=== PATIENT | female | born 1950 | race African-American/Black ===

== ENCOUNTER 2019-10-01 19:15 | Inpatient (IN) ==
[2019-10-01] MEDS ORDERED: ALUM/MAG/SIMETH/LIDO VISC 1:1 30 ML BOTTLE PO STA (19:37)
[2019-10-01] MEDS ORDERED: ASPIRIN 325 MG TABLET PO STA (19:37)
[2019-10-01] MEDS ORDERED: NITROGLYCERIN 2% OINT 1 INCH/GM PACK TOP STA (19:37)
[2019-10-01] MEDS ORDERED: ONDANSETRON 4 MG/2 ML VIAL IV STA (19:37)
[2019-10-01] MEDS ORDERED: PANTOPRAZOLE 40 MG VIAL IV STA (19:37)
[2019-10-01 20:01] LABS: Basophils % 0.2 % (0.0-0.8); Eosinophils # 0.1 10*3/uL (0.0-0.87); Eosinophils % 2.3 % (0.00-10.9); Hematocrit 38.3 VOL% (35.7-47.0); Hemoglobin 11.7 GM/DL (12.0-16.0); Immature Granulocytes % 0.2 %; Immature Granulocytes Absolute 0.01 #; Lymphocytes # 2.8 10*3/uL (1.4-4.0); Lymphocytes % 45.5 % (21.3-54.2); Mean Corpuscular HGB Conc 30.5 GM/DL (32-36); Mean Corpuscular Volume 75.8 FL (87-102); Mean Platelet Volume 10.7 FL (9.6-12.0); Monocytes % 6.3 % (1.7-12.7); Neutrophils % 45.5 % (38.7-73.9); Platelet Count 187 T/CUMM (130-400); Red Blood Count 5.05 MC/CUMM (3.8-5.5); Red Cell Distribution Width 13.6 % (9.3-17.3); White Blood Count 6.2 T/CUMM (4-12)
[2019-10-01 20:12] LABS: Apearance,Urine CLEAR (Clear); Bacteria,Urine Occasional /HPF (Few); Bilirubin,Urine Negative (Negative); Blood, Urine Small mg/dL (Negative); Glucose,Urine (UA) Negative (Negative); Ketones,Urine Negative (Negative); Nitrite,Urine Negative (Negative); Protein,Urine Negative; RBC,Urine 2 /HPF (0-4); Squamous Epithelial Cell,Urine Occasional /HPF (0-10); Urine Color Straw (Yellow); Urine Specific Gravity 1.005 (1.001-1.035); Urine Urobilinogen < 2.0 EU/DL (0.2-1.0); WBC,Urine 1 /HPF (0-6)
[2019-10-01 20:13] LABS: PT Patient Result 11.3 SECS (9.6-12.2)
[2019-10-01 20:25] LABS: Albumin 3.8 G/DL (3.4-5.0); Bilirubin,Total 0.6 MG/DL (0.2-1.0); Calcium 9.1 MG/DL (8.5-10.1); Osmolality,Calculated 283.4 MOS/KG (273-304); Total Protein 7.8 G/DL (6.4-8.3)
[2019-10-01] MEDS ORDERED: ENOXAPARIN 100 MG/ML SYRINGE SUBCUT STA (20:32)
[2019-10-01] MEDS ORDERED: SODIUM CHLORIDE 0.9% 1,000 ML IV SCH (23:44)
[2019-10-01] MEDS ORDERED: MORPHINE 4 MG/1 ML VIAL IV PRN (23:44)
[2019-10-01] MEDS ORDERED: DEXTROSE 10% 250 ML BAG IV PRN (23:44)
[2019-10-01] MEDS ORDERED: GLUCAGON 1 MG VIAL IM PRN (23:44)
[2019-10-01] MEDS ORDERED: ACETAMINOPHEN 325 MG TABLET PO PRN (23:44)
[2019-10-01] MEDS ORDERED: ONDANSETRON 4 MG/2 ML VIAL IV PRN (23:44)
[2019-10-02] MEDS: NITROGLYCERIN 2% OINT 1 INCH/GM PACK TOP SCH ×5 (01:07→23:40)
[2019-10-02] MEDS: INSULIN REGULAR 100 UNIT/ML SUBCUT SCH ×5 (01:43→21:29)
[2019-10-02 02:26] LABS: Basophils % 0.2 % (0.0-0.8); Eosinophils # 0.1 10*3/uL (0.0-0.87); Eosinophils % 1.1 % (0.00-10.9); Hematocrit 34.9 VOL% (35.7-47.0); Hemoglobin 10.9 GM/DL (12.0-16.0); Immature Granulocytes % 0.2 %; Immature Granulocytes Absolute 0.01 #; Lymphocytes # 2.1 10*3/uL (1.4-4.0); Lymphocytes % 39.9 % (21.3-54.2); Mean Corpuscular HGB Conc 31.2 GM/DL (32-36); Mean Corpuscular Volume 74.3 FL (87-102); Mean Platelet Volume 10.3 FL (9.6-12.0); Monocytes % 4.9 % (1.7-12.7); Neutrophils % 53.7 % (38.7-73.9); Platelet Count 158 T/CUMM (130-400); Red Cell Distribution Width 13.4 % (9.3-17.3); White Blood Count 5.3 T/CUMM (4-12)
[2019-10-02 06:57] LABS: Albumin 3.4 G/DL (3.4-5.0); Bilirubin,Total 0.7 MG/DL (0.2-1.0); Calcium 8.4 MG/DL (8.5-10.1); Osmolality,Calculated 287.3 MOS/KG (273-304); Risk Ratio 3.53; Total Protein 6.8 G/DL (6.4-8.3); VLDL CHOLESTEROL 19.4 MG/DL
[2019-10-02] MEDS ORDERED: DIAZEPAM 5 MG TABLET PO ONE (07:27)
[2019-10-02] MEDS ORDERED: ASPIRIN 325 MG TABLET PO ONE (07:27)
[2019-10-02] MEDS ORDERED: POTASSIUM CHLORIDE RIDER 10 MEQ in PREMIX 1 EACH IV PRN (07:27)
[2019-10-02] MEDS ORDERED: MAGNESIUM SULF RIDER 2 GM in PREMIX 1 EACH IV PRN (07:27)
[2019-10-02] MEDS ORDERED: diphenhydrAMINE CAP 25 MG CAPSULE PO ONE (07:27)
[2019-10-02] MEDS: DOCUSATE SODIUM 100 MG CAPSULE PO SCH ×2 (08:38→21:28)
[2019-10-02] MEDS: PANTOPRAZOLE 40 MG VIAL IV SCH (08:42)
[2019-10-02] MEDS ORDERED: ASPIRIN EC 325 MG TABLET PO SCH (09:00)
[2019-10-02] MEDS ORDERED: ENOXAPARIN 80 MG/0.8 ML SYRINGE SUBCUT SCH (09:00)
[2019-10-02] MEDS ORDERED: HEPARIN/NACL 0.9% 2 UNITS/ML 1,000 ML IV ONE (12:20)
[2019-10-02] MEDS ORDERED: LIDOCAINE 1% 20 ML VIAL ONE ×2 (12:20→13:17)
[2019-10-02] MEDS ORDERED: HYDROmorphone 2 MG/1 ML VIAL ONE (12:52)
[2019-10-02] MEDS ORDERED: MIDAZOLAM 2 MG/2 ML VIAL ONE (12:52)
[2019-10-02] MEDS ORDERED: diphenhydrAMINE 50 MG/1 ML VIAL ONE (13:23)
[2019-10-02] MEDS ORDERED: GLUCAGON 1 MG VIAL IM PRN (14:14)
[2019-10-02] MEDS ORDERED: DEXTROSE 50% 25 GM/50 ML VIAL IV PRN (14:14)
[2019-10-02] MEDS ORDERED: ZALEPLON 5 MG CAPSULE PO PRN (14:14)
[2019-10-02] MEDS: SODIUM CHLORIDE 0.9% 1,000 ML IV SCH ×2 (15:06→23:39)
[2019-10-02] MEDS: METOPROLOL TARTRATE 50 MG TABLET PO SCH (15:10)
[2019-10-02] MEDS: SIMVASTATIN 10 MG TABLET PO SCH (21:28)
[2019-10-03 06:35] LABS: Basophils % 0.2 % (0.0-0.8); Eosinophils # 0.1 10*3/uL (0.0-0.87); Eosinophils % 2.7 % (0.00-10.9); Hematocrit 30.3 VOL% (35.7-47.0); Immature Granulocytes % 0.2 %; Immature Granulocytes Absolute 0.01 #; Lymphocytes % 38.6 % (21.3-54.2); Mean Corpuscular HGB Conc 29.7 GM/DL (32-36); Mean Corpuscular Volume 77.5 FL (87-102); Mean Platelet Volume 11.4 FL (9.6-12.0); Monocytes % 6.3 % (1.7-12.7); Platelet Count 136 T/CUMM (130-400); Red Blood Count 3.91 MC/CUMM (3.8-5.5); Red Cell Distribution Width 13.8 % (9.3-17.3); White Blood Count 5.1 T/CUMM (4-12)
[2019-10-03] MEDS: NITROGLYCERIN 2% OINT 1 INCH/GM PACK TOP SCH ×3 (07:06→18:00)
[2019-10-03 07:14] LABS: Calcium 7.7 MG/DL (8.5-10.1); Osmolality,Calculated 291.8 MOS/KG (273-304)
[2019-10-03] MEDS: PANTOPRAZOLE 40 MG VIAL IV SCH (08:27)
[2019-10-03] MEDS: INSULIN REGULAR 100 UNIT/ML SUBCUT SCH ×4 (08:29→20:46)
[2019-10-03] MEDS: ASPIRIN EC 81 MG TABLET PO SCH (08:30)
[2019-10-03] MEDS: CHOLECALCIFEROL 1,000 UNIT TABLET PO SCH (08:30)
[2019-10-03] MEDS: LOSARTAN/HCTZ 50-12.5 MG TABLET PO SCH (08:30)
[2019-10-03] MEDS: DOCUSATE SODIUM 100 MG CAPSULE PO SCH ×2 (08:30→20:43)
[2019-10-03] MEDS: METOPROLOL TARTRATE 50 MG TABLET PO SCH ×2 (08:30→20:43)
[2019-10-03] MEDS: SODIUM CHLORIDE 0.9% 1,000 ML IV SCH (08:31)
[2019-10-03] MEDS: SIMVASTATIN 10 MG TABLET PO SCH (20:43)
[2019-10-04] MEDS: NITROGLYCERIN 2% OINT 1 INCH/GM PACK TOP SCH ×4 (00:38→17:30)
[2019-10-04] MEDS: INSULIN REGULAR 100 UNIT/ML SUBCUT SCH ×4 (08:04→21:31)
[2019-10-04] MEDS: DOCUSATE SODIUM 100 MG CAPSULE PO SCH ×2 (09:13→21:31)
[2019-10-04] MEDS: ASPIRIN EC 81 MG TABLET PO SCH (09:13)
[2019-10-04] MEDS: METOPROLOL TARTRATE 50 MG TABLET PO SCH ×2 (09:14→21:31)
[2019-10-04] MEDS: PANTOPRAZOLE 40 MG VIAL IV SCH (09:14)
[2019-10-04] MEDS: CHOLECALCIFEROL 1,000 UNIT TABLET PO SCH (09:14)
[2019-10-04] MEDS: LOSARTAN/HCTZ 50-12.5 MG TABLET PO SCH (09:14)
[2019-10-04] MEDS ORDERED: LACTULOSE 20 GM/30 ML UDCUP PO PRN (18:07)
[2019-10-04] MEDS: SIMVASTATIN 10 MG TABLET PO SCH (21:31)
[2019-10-05] MEDS: NITROGLYCERIN 2% OINT 1 INCH/GM PACK TOP SCH ×4 (00:28→17:10)
[2019-10-05 06:07] LABS: Folate 16.1 NG/ML (5.4-24.0)
[2019-10-05 06:08] LABS: % Iron Saturation 19.1 % (18-50)
[2019-10-05] MEDS: INSULIN REGULAR 100 UNIT/ML SUBCUT SCH ×4 (08:32→22:11)
[2019-10-05] MEDS ORDERED: CEFUROXIME INJ 1,500 MG in SYRINGE 1 EACH IV ONE (08:52)
[2019-10-05] MEDS ORDERED: GLUCAGON 1 MG VIAL IM PRN (08:52)
[2019-10-05] MEDS ORDERED: DEXTROSE 10% 25 GM/250 ML BAG IV PRN (08:52)
[2019-10-05] MEDS ORDERED: CHLORHEXIDINE 0.12% ORAL RINSE 60 ML BOTTLE SWISH/SPIT SCH (09:00)
[2019-10-05] MEDS ORDERED: SODIUM CHLORIDE 0.9% 1,000 ML IV SCH (09:00)
[2019-10-05] MEDS: POLYETHYLENE GLYCOL POWDER 17 GM PACK PO SCH (09:38)
[2019-10-05] MEDS: PANTOPRAZOLE 40 MG VIAL IV SCH (09:38)
[2019-10-05] MEDS: ASPIRIN EC 81 MG TABLET PO SCH (09:39)
[2019-10-05] MEDS: LOSARTAN/HCTZ 50-12.5 MG TABLET PO SCH (09:39)
[2019-10-05] MEDS: CHOLECALCIFEROL 1,000 UNIT TABLET PO SCH (09:39)
[2019-10-05] MEDS: METOPROLOL TARTRATE 50 MG TABLET PO SCH ×2 (09:39→21:53)
[2019-10-05] MEDS: DOCUSATE SODIUM 100 MG CAPSULE PO SCH ×2 (09:39→21:53)
[2019-10-05 09:47] LABS: ABG Base Excess 0.6 MMOL/L (-2.5-2.5); ABG Oxygen Saturation 97.6 % (95-100); ABG PCO2 37.1 MM HG (35-48); ABG PH 7.431 (7.35-7.45); ABG PO2 85.8 MM HG (80-95); ABG TCO2 22.6 MMOL/L (23-27)
[2019-10-05] MEDS: CHLORHEXIDINE 4% SOLN 118 ML BOTTLE TOP SCH ×4 (12:53→22:11)
[2019-10-05] MEDS: SIMVASTATIN 10 MG TABLET PO SCH (21:53)
[2019-10-05] MEDS: CHLORHEXIDINE 0.12% ORAL RINSE 60 ML BOTTLE SWISH/SPIT SCH (21:55)
[2019-10-06] MEDS: NITROGLYCERIN 2% OINT 1 INCH/GM PACK TOP SCH ×2 (01:11→06:15)
[2019-10-06] MEDS ORDERED: VANCOMYCIN 1,000 MG VIAL ONE (04:23)
[2019-10-06] MEDS ORDERED: PAPAVERINE 60 MG/2 ML VIAL ONE (04:23)
[2019-10-06] MEDS ORDERED: VANCOMYCIN 500 MG VIAL ONE (04:23)
[2019-10-06] MEDS: LOSARTAN/HCTZ 50-12.5 MG TABLET PO SCH ×2 (05:33→09:18)
[2019-10-06] MEDS: METOPROLOL TARTRATE 50 MG TABLET PO SCH ×2 (05:33→09:18)
[2019-10-06] MEDS ORDERED: SODIUM CHLORIDE 0.9% 1,000 ML IV SCH (06:00)
[2019-10-06] MEDS ORDERED: CEFUROXIME INJ 1,500 MG in SYRINGE 1 EACH IV ONE (06:00)
[2019-10-06] MEDS: CHLORHEXIDINE 4% SOLN 118 ML BOTTLE TOP SCH ×2 (06:15→09:18)
[2019-10-06] MEDS ORDERED: MIDAZOLAM 10 MG/2 ML VIAL ONE ×2 (06:20)
[2019-10-06] MEDS ORDERED: SUFentanil 250 MCG/5 ML AMP ONE (06:20)
[2019-10-06] MEDS ORDERED: MINERAL OIL/PETROLATUM OPH OINT 3.5 GM TUBE ONE (06:20)
[2019-10-06] MEDS ORDERED: FAMOTIDINE 20 MG/2 ML VIAL IV ONE (06:21)
[2019-10-06] MEDS ORDERED: diphenhydrAMINE 50 MG/1 ML VIAL ONE (06:21)
[2019-10-06] MEDS ORDERED: NITROPRUSSIDE 50 MG/2 ML VIAL ONE (07:17)
[2019-10-06] MEDS ORDERED: ALBUMIN 5% 12.5 GM/250 ML VIAL IV ONE ×3 (07:18→10:43)
[2019-10-06] MEDS ORDERED: SODIUM BICARBONATE 50 MEQ/50 ML VIAL IV ONE ×2 (07:18→10:42)
[2019-10-06] MEDS ORDERED: PHENYLEPHRINE DRIP 40 MG/250 ML PREMIX IV ONE (07:18)
[2019-10-06] MEDS ORDERED: POTASSIUM CHLORIDE RIDER 100 ML IV ONE (07:18)
[2019-10-06] MEDS ORDERED: CALCIUM CHLORIDE 1,000 MG/10 ML SYRINGE IV ONE (07:18)
[2019-10-06] MEDS ORDERED: EPINEPHrine 1 MG/10 ML SYRINGE ONE (07:19)
[2019-10-06 07:40] LABS: ABG Base Excess -1.8 MMOL/L (-2.5-2.5); ABG HCO3 22.9 MMOL/L (20-26); ABG PH 7.388 (7.35-7.45); ABG TCO2 21.2 MMOL/L (23-27); Glucose Heart Surgery 206 MG/DL (74-106); Hematocrit Heart Surgery 26.9 PERCENT (37-47); Hemoglobin Heart Surgery 8.7 G/DL (12.0-16.0); Ionized Calcium Arterial 1.14 MMOL/L (1.21-1.46); PH Patient Temp Arterial 7.388; Patient Temperature 37 CELCIUS; Potassium Heart/CVR 3.3 MMOL/L (3.5-5.1); Sodium Heart/CVR 141 MMOL/L (135-145)
[2019-10-06 07:47] LABS: Apearance,Urine CLEAR (Clear); Bilirubin,Urine Negative (Negative); Blood, Urine Negative (Negative); Glucose,Urine (UA) Negative (Negative); Ketones,Urine Negative (Negative); Mucus,Urine Few /LPF (Occasional); Nitrite,Urine Negative (Negative); Protein,Urine Negative; RBC,Urine <1 /HPF (0-4); Squamous Epithelial Cell,Urine Occasional /HPF (0-10); Urine Color Yellow (Yellow); Urine Specific Gravity 1.015 (1.001-1.035)
[2019-10-06 09:12] LABS: Hematocrit Heart Surgery 23.4 PERCENT (37-47); Hemoglobin Heart Surgery 7.5 G/DL (12.0-16.0); PH Patient Temp Venous 7.45; PO2 Patient Temp Venous 42.9 MM HG; VBG Base Excess -2.5 MEQ/L (0-4); VBG HCO3 22.3 MEQ/L (24-28); VBG Oxygen Saturation 91.4 %; VBG PCO2 34.7 MMHG (41-51); VBG PH 7.406; VBG PO2 52.6 MMHG (17-40)
[2019-10-06] MEDS: POLYETHYLENE GLYCOL POWDER 17 GM PACK PO SCH (09:18)
[2019-10-06] MEDS: ASPIRIN EC 81 MG TABLET PO SCH (09:18)
[2019-10-06] MEDS: CHLORHEXIDINE 0.12% ORAL RINSE 60 ML BOTTLE SWISH/SPIT SCH ×2 (09:18→20:17)
[2019-10-06] MEDS: DOCUSATE SODIUM 100 MG CAPSULE PO SCH (09:18)
[2019-10-06] MEDS: PANTOPRAZOLE 40 MG VIAL IV SCH (09:18)
[2019-10-06] MEDS: CHOLECALCIFEROL 1,000 UNIT TABLET PO SCH (09:18)
[2019-10-06] MEDS: INSULIN REGULAR 100 UNIT/ML SUBCUT SCH ×2 (09:18→13:01)
[2019-10-06 09:46] LABS: Hematocrit Heart Surgery 23.3 PERCENT (37-47); Hemoglobin Heart Surgery 7.5 G/DL (12.0-16.0); PCO2 Patient Temp Venous 29.3 MM HG; PH Patient Temp Venous 7.498; PO2 Patient Temp Venous 41.8 MM HG; Potassium Heart/CVR 4.7 MMOL/L (3.5-5.1); VBG Base Excess 0.1 MEQ/L (0-4); VBG HCO3 24.5 MEQ/L (24-28); VBG Oxygen Saturation 92.8 %; VBG PCO2 35.6 MMHG (41-51); VBG PH 7.439; VBG PO2 54.7 MMHG (17-40)
[2019-10-06] MEDS ORDERED: LIDOCAINE 2% 5 ML VIAL ONE ×2 (10:42→11:28)
[2019-10-06] MEDS ORDERED: ALBUMIN 25% 25 GM/100 ML VIAL IV ONE (10:42)
[2019-10-06] MEDS ORDERED: DEXTROSE 5% KCL 20 MEQ 20 MEQ/1,000 ML BAG IV ONE (10:42)
[2019-10-06] MEDS ORDERED: MANNITOL 100 GM/500 ML BAG IV ONE (10:42)
[2019-10-06] MEDS ORDERED: MAGNESIUM SULFATE 5 GM/10 ML VIAL IV ONE (10:42)
[2019-10-06] MEDS ORDERED: PROTAMINE SULFATE 250 MG/25 ML VIAL IV ONE (10:42)
[2019-10-06] MEDS ORDERED: FUROSEMIDE 20 MG/2 ML VIAL ONE (10:43)
[2019-10-06] MEDS ORDERED: HEPARIN 10,000 UNIT/10 ML VIAL ONE (10:43)
[2019-10-06] MEDS ORDERED: methylPREDNISolone SOD SUC 1,000 MG/8 ML VIAL ONE (10:43)
[2019-10-06 10:44] LABS: ABG Base Excess -2.1 MMOL/L (-2.5-2.5); ABG HCO3 22.7 MMOL/L (20-26); ABG PCO2 38.2 MM HG (35-48); ABG PH 7.382 (7.35-7.45); Glucose Heart Surgery 316 MG/DL (74-106); Hematocrit Heart Surgery 27.7 PERCENT (37-47); Hemoglobin Heart Surgery 8.9 G/DL (12.0-16.0); Ionized Calcium Arterial 1.16 MMOL/L (1.21-1.46); PCO2 Patient Temp Arterial 38.2 MMHG; PH Patient Temp Arterial 7.382; Patient Temperature 37 CELCIUS; Potassium Heart/CVR 4.2 MMOL/L (3.5-5.1); Sodium Heart/CVR 135 MMOL/L (135-145)
[2019-10-06] MEDS: LACTATED RINGERS 1,000 ML IV PRN ×3 (11:20→15:56)
[2019-10-06] MEDS ORDERED: PHENYLEPHRINE DRIP 20 MG/250 ML PREMIX IV ONE (11:28)
[2019-10-06] MEDS ORDERED: CALCIUM CHLORIDE 1,000 MG/10 ML VIAL IV ONE (11:28)
[2019-10-06] MEDS ORDERED: SODIUM CHLORIDE 0.9% 200 ML IV ONE (11:29)
[2019-10-06] MEDS ORDERED: LACTATED RINGERS 1,000 ML IV ONE (11:29)
[2019-10-06] MEDS ORDERED: ETOMIDATE 40 MG/20 ML VIAL IV ONE (11:29)
[2019-10-06] MEDS ORDERED: HEPARIN/NACL 0.9% 2 UNITS/ML 500 ML IV ONE (11:29)
[2019-10-06] MEDS ORDERED: AMINOCAPROIC ACID 5,000 MG/20 ML VIAL ONE (11:29)
[2019-10-06] MEDS ORDERED: SODIUM CHLORIDE 0.9% 2,000 ML IV ONE (11:29)
[2019-10-06] MEDS ORDERED: VECURONIUM 10 MG VIAL IV ONE (11:29)
[2019-10-06] MEDS ORDERED: SEVOFLURANE 1 UNIT/15 MINUTE INH ONE (11:29)
[2019-10-06] MEDS ORDERED: SODIUM CHLORIDE 0.9% 250 ML IV ONE (11:29)
[2019-10-06] MEDS ORDERED: NITROGLYCERIN DRIP 50 MG/250 ML BOTTLE IV ONE (11:29)
[2019-10-06] MEDS: ALBUMIN 5% 12.5 GM in PREMIX 1 EACH IV PRN ×2 (11:30→12:53)
[2019-10-06] MEDS ORDERED: ONDANSETRON 4 MG/2 ML VIAL IV PRN (11:47)
[2019-10-06] MEDS ORDERED: PHENYLEPHRINE DRIP 40 MG/250 ML PREMIX IV PRN (11:47)
[2019-10-06] MEDS ORDERED: NITROPRUSSIDE 100 MG in DEXTROSE 5% 250 ML IV PRN (11:47)
[2019-10-06] MEDS ORDERED: MAGNESIUM SULF RIDER 2 GM in PREMIX 1 EACH IV PRN (11:47)
[2019-10-06] MEDS ORDERED: MORPHINE 4 MG/1 ML VIAL IV PRN (11:47)
[2019-10-06] MEDS ORDERED: MAGNESIUM SULF RIDER 4 GM in PREMIX 1 EACH IV PRN (11:47)
[2019-10-06] MEDS ORDERED: POTASSIUM CHLORIDE RIDER 10 MEQ in PREMIX 1 EACH IV PRN (11:47)
[2019-10-06] MEDS ORDERED: CALCIUM CHLORIDE 1,000 MG/10 ML SYRINGE IV PRN (11:47)
[2019-10-06] MEDS ORDERED: DEXTROSE 50% 25 GM/50 ML VIAL IV PRN (11:47)
[2019-10-06] MEDS ORDERED: MORPHINE 10 MG/1 ML VIAL IV PRN (11:47)
[2019-10-06] MEDS ORDERED: VECURONIUM 10 MG VIAL IV PRN ×2 (11:47)
[2019-10-06] MEDS ORDERED: MIDAZOLAM 10 MG/2 ML VIAL IV PRN (11:47)
[2019-10-06] MEDS ORDERED: DEXTROSE 10% 25 GM/250 ML BAG IV PRN ×2 (11:47→12:30)
[2019-10-06] MEDS ORDERED: INSULIN REGULAR 100 UNIT/ML IV ONE (11:47)
[2019-10-06] MEDS ORDERED: ACETAMINOPHEN 650 MG SUPP RECTAL PRN (11:47)
[2019-10-06] MEDS ORDERED: MIDAZOLAM 2 MG/2 ML VIAL IV PRN (11:47)
[2019-10-06] MEDS ORDERED: LACTATED RINGERS 250 ML IV PRN (11:47)
[2019-10-06 11:52] LABS: ABG Base Excess -1.4 MMOL/L (-2.5-2.5); ABG HCO3 23.2 MMOL/L (20-26); ABG Oxygen Saturation 97.6 % (95-100); ABG PCO2 28.7 MM HG (35-48); ABG PH 7.476 (7.35-7.45); ABG PO2 81.1 MM HG (80-95); Glucose Heart Surgery 314 MG/DL (74-106); Hematocrit Heart Surgery 32.9 PERCENT (37-47); Hemoglobin Heart Surgery 10.6 G/DL (12.0-16.0); Potassium Heart/CVR 3.6 MMOL/L (3.5-5.1)
[2019-10-06 11:57] LABS: Basophils % 0.2 % (0.0-0.8); Eosinophils # 0.1 10*3/uL (0.0-0.87); Eosinophils % 2.1 % (0.00-10.9); Hematocrit 32.1 VOL% (35.7-47.0); Hemoglobin 10.5 GM/DL (12.0-16.0); Immature Granulocytes % 0.5 %; Immature Granulocytes Absolute 0.03 #; Lymphocytes % 15.5 % (21.3-54.2); Mean Corpuscular HGB Conc 32.7 GM/DL (32-36); Mean Corpuscular Volume 79.7 FL (87-102); Mean Platelet Volume 11.3 FL (9.6-12.0); Monocytes % 2.4 % (1.7-12.7); Neutrophils % 79.3 % (38.7-73.9); Red Blood Count 4.03 MC/CUMM (3.8-5.5); Red Cell Distribution Width 16.7 % (9.3-17.3); White Blood Count 6.3 T/CUMM (4-12)
[2019-10-06 11:58] LABS: Platelet Count 85 T/CUMM (130-400)
[2019-10-06] MEDS ORDERED: SODIUM CHLORIDE 0.45% 1,000 ML IV SCH ×2 (12:00)
[2019-10-06 12:05] LABS: INR 1.2; PT Patient Result 13.1 SECS (9.6-12.2); Partial Thromboplastin Time 25.4 SECS (20.8-36.0)
[2019-10-06] MEDS: POTASSIUM CHLORIDE RIDER 20 MEQ in PREMIX 1 EACH IV PRN ×5 (12:10→20:43)
[2019-10-06 12:13] LABS: Albumin 2.7 G/DL (3.4-5.0); Bilirubin,Total 1.7 MG/DL (0.2-1.0); Osmolality,Calculated 291.4 MOS/KG (273-304); Total Protein 5.2 G/DL (6.4-8.3)
[2019-10-06 12:20] LABS: CKMB % 8.4 %
[2019-10-06 12:21] LABS: Troponin I 4.2 NG/ML (0.00-0.045)
[2019-10-06] MEDS: KETOROLAC 30 MG/1 ML VIAL IV SCH ×3 (12:53→23:57)
[2019-10-06] MEDS: INSULIN REGULAR DRIP 100 ML IV SCH ×2 (12:55→22:47)
[2019-10-06 13:12] LABS: ABG Base Excess -1.8 MMOL/L (-2.5-2.5); ABG HCO3 22.9 MMOL/L (20-26); ABG Oxygen Saturation 99.7 % (95-100); ABG PCO2 31.4 MM HG (35-48); ABG PH 7.444 (7.35-7.45); ABG TCO2 19.4 MMOL/L (23-27); Glucose Heart Surgery 318 MG/DL (74-106); Hematocrit Heart Surgery 32.6 PERCENT (37-47); Hemoglobin Heart Surgery 10.6 G/DL (12.0-16.0); Potassium Heart/CVR 4.3 MMOL/L (3.5-5.1)
[2019-10-06] MEDS: INSULIN REGULAR 100 UNIT/ML IV PRN ×2 (14:53→19:19)
[2019-10-06 17:37] LABS: ABG Base Excess -1.4 MMOL/L (-2.5-2.5); ABG HCO3 23.2 MMOL/L (20-26); ABG Oxygen Saturation 99.7 % (95-100); ABG PCO2 25.2 MM HG (35-48); ABG PH 7.517 (7.35-7.45); ABG TCO2 18.5 MMOL/L (23-27); Glucose Heart Surgery 165 MG/DL (74-106); Hematocrit Heart Surgery 30.1 PERCENT (37-47); Hemoglobin Heart Surgery 9.7 G/DL (12.0-16.0); Potassium Heart/CVR 3.1 MMOL/L (3.5-5.1)
[2019-10-06] MEDS: CEFUROXIME INJ 1,500 MG in SYRINGE 1 EACH IV SCH (19:28)
[2019-10-06] MEDS ORDERED: FUROSEMIDE 40 MG/4 ML VIAL IV PRN (19:35)
[2019-10-06 19:54] LABS: ABG Base Excess -4.1 MMOL/L (-2.5-2.5); ABG Oxygen Saturation 99.2 % (95-100); ABG PCO2 35.2 MM HG (35-48); ABG PH 7.374 (7.35-7.45); ABG TCO2 18.6 MMOL/L (23-27); Glucose Heart Surgery 154 MG/DL (74-106); Hematocrit Heart Surgery 31.6 PERCENT (37-47); Hemoglobin Heart Surgery 10.2 G/DL (12.0-16.0); Potassium Heart/CVR 3.2 MMOL/L (3.5-5.1)
[2019-10-06 20:13] LABS: CKMB % 6.4 %
[2019-10-06 20:15] LABS: Troponin I 11.4 NG/ML (0.00-0.045)
[2019-10-06 22:00] LABS: ABG Base Excess -4.4 MMOL/L (-2.5-2.5); ABG HCO3 20.8 MMOL/L (20-26); ABG Oxygen Saturation 99.5 % (95-100); ABG PCO2 31.2 MM HG (35-48); ABG PH 7.403 (7.35-7.45); ABG TCO2 17.6 MMOL/L (23-27); Glucose Heart Surgery 124 MG/DL (74-106); Hematocrit Heart Surgery 32.2 PERCENT (37-47); Hemoglobin Heart Surgery 10.4 G/DL (12.0-16.0); Potassium Heart/CVR 3.8 MMOL/L (3.5-5.1)
[2019-10-06 23:04] LABS: ABG Base Excess -3.9 MMOL/L (-2.5-2.5); ABG HCO3 20.2 MMOL/L (20-26); ABG Oxygen Saturation 98.4 % (95-100); ABG PCO2 33.3 MM HG (35-48); ABG PO2 164.9 MM HG (80-95); ABG TCO2 21.2 MMOL/L (23-27); Glucose Heart Surgery 106 MG/DL (74-106); Hemoglobin Heart Surgery 10.7 G/DL (12.0-16.0); Potassium Heart/CVR 3.6 MMOL/L (3.5-5.1)
[2019-10-07 00:33] LABS: ABG Base Excess -3.4 MMOL/L (-2.5-2.5); ABG HCO3 20.5 MMOL/L (20-26); ABG Oxygen Saturation 97.8 % (95-100); ABG PCO2 32.9 MM HG (35-48); ABG PH 7.413 (7.35-7.45); ABG PO2 122.5 MM HG (80-95); ABG TCO2 21.5 MMOL/L (23-27); Glucose Heart Surgery 91 MG/DL (74-106); Hemoglobin Heart Surgery 10.2 G/DL (12.0-16.0); Potassium Heart/CVR 3.6 MMOL/L (3.5-5.1)
[2019-10-07] MEDS: ALBUMIN 5% 12.5 GM in PREMIX 1 EACH IV PRN ×2 (01:02→01:31)
[2019-10-07 04:27] LABS: ABG Base Excess -4.3 MMOL/L (-2.5-2.5); ABG HCO3 19.8 MMOL/L (20-26); ABG PCO2 32.4 MM HG (35-48); ABG PH 7.403 (7.35-7.45); ABG PO2 129.2 MM HG (80-95); ABG TCO2 20.7 MMOL/L (23-27); Glucose Heart Surgery 142 MG/DL (74-106); Hemoglobin Heart Surgery 9.3 G/DL (12.0-16.0); Potassium Heart/CVR 3.9 MMOL/L (3.5-5.1)
[2019-10-07 04:37] LABS: Hematocrit 28.6 VOL% (35.7-47.0); Hemoglobin 9.2 GM/DL (12.0-16.0); Immature Granulocytes % 0.4 %; Immature Granulocytes Absolute 0.03 #; Lymphocytes # 0.6 10*3/uL (1.4-4.0); Lymphocytes % 8.1 % (21.3-54.2); Mean Corpuscular HGB Conc 32.2 GM/DL (32-36); Mean Corpuscular Volume 80.6 FL (87-102); Mean Platelet Volume 11.8 FL (9.6-12.0); Monocytes % 3.8 % (1.7-12.7); Neutrophils % 87.7 % (38.7-73.9); Red Blood Count 3.55 MC/CUMM (3.8-5.5); Red Cell Distribution Width 16.1 % (9.3-17.3); White Blood Count 7.9 T/CUMM (4-12)
[2019-10-07 04:40] LABS: Platelet Count 91 T/CUMM (130-400)
[2019-10-07 04:53] LABS: Albumin 3.8 G/DL (3.4-5.0); Bilirubin,Direct 0.42 MG/DL (0.0-0.20); Bilirubin,Total 1.4 MG/DL (0.2-1.0); Calcium 8.4 MG/DL (8.5-10.1); Total Protein 6.1 G/DL (6.4-8.3)
[2019-10-07 05:12] LABS: Hypochromasia Slight; Platelet Estimate Decreased; Polychromasia Few
[2019-10-07] MEDS: POTASSIUM CHLORIDE RIDER 20 MEQ in PREMIX 1 EACH IV PRN (05:32)
[2019-10-07] MEDS: KETOROLAC 30 MG/1 ML VIAL IV SCH (05:44)
[2019-10-07] MEDS: CEFUROXIME INJ 1,500 MG in SYRINGE 1 EACH IV SCH (06:35)
[2019-10-07] MEDS ORDERED: INSULIN REGULAR 100 UNIT/ML SUBCUT SCH ×2 (08:00→12:00)
[2019-10-07] MEDS: prednisoLONE ACETATE 1% OPH SUSP 5 ML BOTTLE LEFT EYE SCH (09:37)
[2019-10-07] MEDS: CHLORHEXIDINE 0.12% ORAL RINSE 60 ML BOTTLE SWISH/SPIT SCH ×2 (09:37→20:36)
[2019-10-07] MEDS ORDERED: ALUMINUM/MAGNES/SIMETH MAX STR 30 ML UDCUP PO PRN (09:38)
[2019-10-07] MEDS ORDERED: POTASSIUM CHLORIDE 20 MEQ TABLET PO PRN (09:38)
[2019-10-07] MEDS ORDERED: GLUCAGON 1 MG VIAL IM PRN ×2 (09:38)
[2019-10-07] MEDS ORDERED: MAGNESIUM SULF RIDER 4 GM in PREMIX 1 EACH IV PRN (09:38)
[2019-10-07] MEDS ORDERED: MAGNESIUM HYDROXIDE SUSP 30 ML UDCUP PO PRN (09:38)
[2019-10-07] MEDS ORDERED: DEXTROSE 10% 25 GM/250 ML BAG IV PRN ×2 (09:38)
[2019-10-07] MEDS ORDERED: MAGNESIUM SULF RIDER 2 GM in PREMIX 1 EACH IV PRN (09:38)
[2019-10-07] MEDS ORDERED: SODIUM CHLOR 0.45% KCL 20 MEQ 20 MEQ/1,000 ML BAG IV SCH (09:38)
[2019-10-07] MEDS ORDERED: ONDANSETRON 4 MG/2 ML VIAL IV PRN (09:38)
[2019-10-07] MEDS ORDERED: ACETAMINOPHEN 325 MG TABLET PO PRN (09:38)
[2019-10-07] MEDS: KETOROLAC 15 MG/1 ML VIAL IV SCH ×3 (10:55→22:39)
[2019-10-07] MEDS: INSULIN REGULAR 100 UNIT/ML SUBCUT SCH ×2 (16:32→20:35)
[2019-10-07] MEDS: METOPROLOL TARTRATE 50 MG TABLET PO SCH (20:34)
[2019-10-07] MEDS: SIMVASTATIN 10 MG TABLET PO SCH (20:34)
[2019-10-08] MEDS: INSULIN REGULAR 100 UNIT/ML SUBCUT SCH ×6 (00:49→21:05)
[2019-10-08] MEDS: KETOROLAC 15 MG/1 ML VIAL IV SCH ×4 (04:31→22:14)
[2019-10-08 04:55] LABS: Basophils % 0.1 % (0.0-0.8); Hematocrit 30.3 VOL% (35.7-47.0); Hemoglobin 9.6 GM/DL (12.0-16.0); Immature Granulocytes % 0.2 %; Immature Granulocytes Absolute 0.02 #; Lymphocytes # 1.3 10*3/uL (1.4-4.0); Lymphocytes % 14.9 % (21.3-54.2); Mean Corpuscular HGB Conc 31.7 GM/DL (32-36); Mean Platelet Volume 11.7 FL (9.6-12.0); Monocytes % 6.3 % (1.7-12.7); NRBC # 0.03 10*3/uL; Neutrophils % 78.5 % (38.7-73.9); Platelet Count 102 T/CUMM (130-400); Red Blood Count 3.74 MC/CUMM (3.8-5.5); Red Cell Distribution Width 17.4 % (9.3-17.3); White Blood Count 8.5 T/CUMM (4-12)
[2019-10-08 05:19] LABS: Albumin 3.2 G/DL (3.4-5.0); Bilirubin,Direct 0.26 MG/DL (0.0-0.20); Bilirubin,Total 1.3 MG/DL (0.2-1.0); CKMB % 6.7 %; Calcium 7.9 MG/DL (8.5-10.1); Osmolality,Calculated 302.8 MOS/KG (273-304); Total Protein 5.8 G/DL (6.4-8.3)
[2019-10-08 05:20] LABS: Troponin I 27.5 NG/ML (0.00-0.045)
[2019-10-08] MEDS ORDERED: FUROSEMIDE 40 MG/4 ML VIAL IV ONE (06:00)
[2019-10-08] MEDS ORDERED: metFORMIN 500 MG TABLET PO SCH (07:30)
[2019-10-08] MEDS ORDERED: POLYETHYLENE GLYCOL POWDER 17 GM PACK PO SCH (09:00)
[2019-10-08] MEDS ORDERED: CHOLECALCIFEROL 1,000 UNIT TABLET PO SCH (09:00)
[2019-10-08] MEDS: prednisoLONE ACETATE 1% OPH SUSP 5 ML BOTTLE LEFT EYE SCH (10:13)
[2019-10-08] MEDS: prednisoLONE ACETATE 1% OPH SUSP 5 ML BOTTLE RIGHT EYE SCH (10:13)
[2019-10-08] MEDS: LOSARTAN/HCTZ 50-12.5 MG TABLET PO SCH (10:13)
[2019-10-08] MEDS: FERROUS SULFATE 325 MG TABLET PO SCH (10:13)
[2019-10-08] MEDS: ASPIRIN EC 81 MG TABLET PO SCH (10:13)
[2019-10-08] MEDS: PANTOPRAZOLE 40 MG TABLET PO SCH (10:14)
[2019-10-08] MEDS: DOCUSATE SODIUM 100 MG CAPSULE PO SCH (10:14)
[2019-10-08] MEDS: oxyCODONE/ACETAMINOPHEN 5-325 MG TABLET PO PRN ×2 (10:14→17:23)
[2019-10-08] MEDS: CHLORHEXIDINE 0.12% ORAL RINSE 60 ML BOTTLE SWISH/SPIT SCH ×2 (10:14→21:03)
[2019-10-08] MEDS: METOPROLOL TARTRATE 50 MG TABLET PO SCH ×2 (10:14→21:02)
[2019-10-08] MEDS: SIMVASTATIN 10 MG TABLET PO SCH (21:02)
[2019-10-09] MEDS: INSULIN REGULAR 100 UNIT/ML SUBCUT SCH ×6 (05:11→20:43)
[2019-10-09 05:25] LABS: Basophils % 0.1 % (0.0-0.8); Eosinophils % 0.4 % (0.00-10.9); Hematocrit 31.2 VOL% (35.7-47.0); Hemoglobin 9.7 GM/DL (12.0-16.0); Immature Granulocytes % 0.4 %; Immature Granulocytes Absolute 0.04 #; Lymphocytes # 2.3 10*3/uL (1.4-4.0); Lymphocytes % 25.9 % (21.3-54.2); Mean Corpuscular HGB Conc 31.1 GM/DL (32-36); Mean Corpuscular Volume 82.8 FL (87-102); Mean Platelet Volume 12.4 FL (9.6-12.0); Monocytes % 7.4 % (1.7-12.7); NRBC # 0.03 10*3/uL; Neutrophils % 65.8 % (38.7-73.9); Platelet Count 116 T/CUMM (130-400); Red Blood Count 3.77 MC/CUMM (3.8-5.5); Red Cell Distribution Width 17.1 % (9.3-17.3)
[2019-10-09 05:39] LABS: Albumin 2.9 G/DL (3.4-5.0); Bilirubin,Direct 0.29 MG/DL (0.0-0.20); Bilirubin,Indirect 0.6 MG/DL (0.0-1.0); Bilirubin,Total 0.9 MG/DL (0.2-1.0); Calcium 7.9 MG/DL (8.5-10.1); Osmolality,Calculated 296.6 MOS/KG (273-304); Total Protein 5.6 G/DL (6.4-8.3)
[2019-10-09 05:46] LABS: Troponin I 23.4 NG/ML (0.00-0.045)
[2019-10-09] MEDS: KETOROLAC 15 MG/1 ML VIAL IV SCH ×4 (05:58→23:16)
[2019-10-09] MEDS ORDERED: GLIMEPIRIDE 2 MG TABLET PO SCH (08:00)
[2019-10-09] MEDS: prednisoLONE ACETATE 1% OPH SUSP 5 ML BOTTLE LEFT EYE SCH (09:20)
[2019-10-09] MEDS: oxyCODONE/ACETAMINOPHEN 5-325 MG TABLET PO PRN ×3 (09:21→18:48)
[2019-10-09] MEDS: ASPIRIN EC 81 MG TABLET PO SCH (09:21)
[2019-10-09] MEDS: LOSARTAN/HCTZ 50-12.5 MG TABLET PO SCH (09:21)
[2019-10-09] MEDS: SERTRALINE 25 MG TABLET PO SCH (09:21)
[2019-10-09] MEDS: DOCUSATE SODIUM 100 MG CAPSULE PO SCH (09:21)
[2019-10-09] MEDS: METOPROLOL TARTRATE 50 MG TABLET PO SCH ×2 (09:21→20:24)
[2019-10-09] MEDS: FERROUS SULFATE 325 MG TABLET PO SCH (09:21)
[2019-10-09] MEDS: PANTOPRAZOLE 40 MG TABLET PO SCH (09:22)
[2019-10-09] MEDS: CHLORHEXIDINE 0.12% ORAL RINSE 60 ML BOTTLE SWISH/SPIT SCH ×2 (09:31→20:25)
[2019-10-09] MEDS: ZALEPLON 5 MG CAPSULE PO PRN (20:24)
[2019-10-09] MEDS: SIMVASTATIN 10 MG TABLET PO SCH (20:24)
[2019-10-10] MEDS: INSULIN REGULAR 100 UNIT/ML SUBCUT SCH ×6 (00:39→21:45)
[2019-10-10] MEDS: KETOROLAC 15 MG/1 ML VIAL IV SCH (06:20)
[2019-10-10] MEDS: FERROUS SULFATE 325 MG TABLET PO SCH (09:53)
[2019-10-10] MEDS: LOSARTAN/HCTZ 50-12.5 MG TABLET PO SCH (09:53)
[2019-10-10] MEDS: SERTRALINE 25 MG TABLET PO SCH (09:53)
[2019-10-10] MEDS: PANTOPRAZOLE 40 MG TABLET PO SCH (09:53)
[2019-10-10] MEDS: ASPIRIN EC 81 MG TABLET PO SCH (09:53)
[2019-10-10] MEDS: GLIMEPIRIDE 2 MG TABLET PO SCH (09:53)
[2019-10-10] MEDS: DOCUSATE SODIUM 100 MG CAPSULE PO SCH (09:53)
[2019-10-10] MEDS: METOPROLOL TARTRATE 50 MG TABLET PO SCH ×2 (09:53→21:42)
[2019-10-10] MEDS: prednisoLONE ACETATE 1% OPH SUSP 5 ML BOTTLE LEFT EYE SCH (09:54)
[2019-10-10] MEDS: CHLORHEXIDINE 0.12% ORAL RINSE 60 ML BOTTLE SWISH/SPIT SCH ×2 (09:54→21:44)
[2019-10-10] MEDS: prednisoLONE ACETATE 1% OPH SUSP 5 ML BOTTLE RIGHT EYE SCH (09:54)
[2019-10-10] MEDS: oxyCODONE/ACETAMINOPHEN 5-325 MG TABLET PO PRN (12:09)
[2019-10-10] MEDS: SIMVASTATIN 10 MG TABLET PO SCH (21:41)
[2019-10-11] MEDS: INSULIN REGULAR 100 UNIT/ML SUBCUT SCH ×6 (01:15→21:30)
[2019-10-11 05:41] LABS: Basophils % 0.1 % (0.0-0.8); Eosinophils # 0.2 10*3/uL (0.0-0.87); Eosinophils % 2.4 % (0.00-10.9); Hematocrit 33.7 VOL% (35.7-47.0); Hemoglobin 10.3 GM/DL (12.0-16.0); Immature Granulocytes % 0.5 %; Immature Granulocytes Absolute 0.04 #; Lymphocytes % 27.6 % (21.3-54.2); Mean Corpuscular HGB Conc 30.6 GM/DL (32-36); Mean Platelet Volume 11.7 FL (9.6-12.0); Monocytes % 7.2 % (1.7-12.7); NRBC # 0.02 10*3/uL; Neutrophils % 62.2 % (38.7-73.9); Platelet Count 173 T/CUMM (130-400); Red Blood Count 4.06 MC/CUMM (3.8-5.5); Red Cell Distribution Width 16.6 % (9.3-17.3); White Blood Count 7.4 T/CUMM (4-12)
[2019-10-11 05:43] LABS: Alanine Aminotransferase 37 U/L (13-56); Albumin 2.6 G/DL (3.4-5.0); Alkaline Phosphatase 64 U/L (45-117); Aspartate Amino Transferase 37 U/L (0-37); Bilirubin,Indirect 1.3 MG/DL (0.0-1.0); Blood Urea Nitrogen 30 MG/DL (7-18); Calcium 8.2 MG/DL (8.5-10.1); Estimated Glom Filtration Rate 73 ML/MIN; Glucose 81 MG/DL (74-106); Osmolality,Calculated 290.8 MOS/KG (273-304); Total Protein 5.6 G/DL (6.4-8.3)
[2019-10-11] MEDS: LOSARTAN/HCTZ 50-12.5 MG TABLET PO SCH (08:46)
[2019-10-11] MEDS: ASPIRIN EC 81 MG TABLET PO SCH (08:46)
[2019-10-11] MEDS: FERROUS SULFATE 325 MG TABLET PO SCH (08:46)
[2019-10-11] MEDS: GLIMEPIRIDE 2 MG TABLET PO SCH (08:46)
[2019-10-11] MEDS: DOCUSATE SODIUM 100 MG CAPSULE PO SCH (08:46)
[2019-10-11] MEDS: CHLORHEXIDINE 0.12% ORAL RINSE 60 ML BOTTLE SWISH/SPIT SCH ×2 (08:47→21:26)
[2019-10-11] MEDS: SERTRALINE 25 MG TABLET PO SCH (08:47)
[2019-10-11] MEDS: prednisoLONE ACETATE 1% OPH SUSP 5 ML BOTTLE LEFT EYE SCH (08:47)
[2019-10-11] MEDS: METOPROLOL TARTRATE 50 MG TABLET PO SCH ×2 (08:47→21:25)
[2019-10-11] MEDS: PANTOPRAZOLE 40 MG TABLET PO SCH (08:47)
[2019-10-11] MEDS: SIMVASTATIN 10 MG TABLET PO SCH (21:25)
[2019-10-11] MEDS: ZALEPLON 5 MG CAPSULE PO PRN (23:08)
[2019-10-12] MEDS: INSULIN REGULAR 100 UNIT/ML SUBCUT SCH ×6 (00:16→20:48)
[2019-10-12 05:32] LABS: Basophils % 0.1 % (0.0-0.8); Eosinophils # 0.2 10*3/uL (0.0-0.87); Eosinophils % 2.4 % (0.00-10.9); Hematocrit 31.9 VOL% (35.7-47.0); Hemoglobin 10.1 GM/DL (12.0-16.0); Immature Granulocytes % 0.4 %; Immature Granulocytes Absolute 0.03 #; Lymphocytes # 1.6 10*3/uL (1.4-4.0); Lymphocytes % 22.7 % (21.3-54.2); Mean Corpuscular HGB Conc 31.7 GM/DL (32-36); Mean Corpuscular Volume 82.9 FL (87-102); Mean Platelet Volume 11.4 FL (9.6-12.0); Monocytes % 8.1 % (1.7-12.7); Neutrophils % 66.3 % (38.7-73.9); Platelet Count 170 T/CUMM (130-400); Red Blood Count 3.85 MC/CUMM (3.8-5.5); Red Cell Distribution Width 16.8 % (9.3-17.3)
[2019-10-12 06:06] LABS: Alanine Aminotransferase 28 U/L (13-56); Albumin 2.4 G/DL (3.4-5.0); Alkaline Phosphatase 69 U/L (45-117); Aspartate Amino Transferase 27 U/L (0-37); Blood Urea Nitrogen 19 MG/DL (7-18); Calcium 8.4 MG/DL (8.5-10.1); Estimated Glom Filtration Rate 73 ML/MIN; Glucose 147 MG/DL (74-106); Osmolality,Calculated 285.3 MOS/KG (273-304); Total Protein 5.5 G/DL (6.4-8.3)
[2019-10-12] MEDS: METOPROLOL TARTRATE 50 MG TABLET PO SCH ×2 (09:04→20:49)
[2019-10-12] MEDS: LOSARTAN/HCTZ 50-12.5 MG TABLET PO SCH (09:04)
[2019-10-12] MEDS: SERTRALINE 25 MG TABLET PO SCH (09:04)
[2019-10-12] MEDS: GLIMEPIRIDE 2 MG TABLET PO SCH (09:04)
[2019-10-12] MEDS: PANTOPRAZOLE 40 MG TABLET PO SCH (09:04)
[2019-10-12] MEDS: FERROUS SULFATE 325 MG TABLET PO SCH (09:05)
[2019-10-12] MEDS: ASPIRIN EC 81 MG TABLET PO SCH (09:05)
[2019-10-12] MEDS: DOCUSATE SODIUM 100 MG CAPSULE PO SCH (09:05)
[2019-10-12] MEDS: prednisoLONE ACETATE 1% OPH SUSP 5 ML BOTTLE LEFT EYE SCH (09:05)
[2019-10-12] MEDS: prednisoLONE ACETATE 1% OPH SUSP 5 ML BOTTLE RIGHT EYE SCH (09:05)
[2019-10-12] MEDS: CHLORHEXIDINE 0.12% ORAL RINSE 60 ML BOTTLE SWISH/SPIT SCH ×2 (09:05→20:49)
[2019-10-12] MEDS: POLYETHYLENE GLYCOL POWDER 17 GM PACK PO SCH (09:11)
[2019-10-12] MEDS: SIMVASTATIN 10 MG TABLET PO SCH (20:49)
[2019-10-13] MEDS: INSULIN REGULAR 100 UNIT/ML SUBCUT SCH ×6 (00:05→21:42)
[2019-10-13] MEDS: ASPIRIN EC 81 MG TABLET PO SCH (08:40)
[2019-10-13] MEDS: GLIMEPIRIDE 2 MG TABLET PO SCH (08:40)
[2019-10-13] MEDS: LOSARTAN/HCTZ 50-12.5 MG TABLET PO SCH (08:40)
[2019-10-13] MEDS: SERTRALINE 25 MG TABLET PO SCH (08:41)
[2019-10-13] MEDS: POLYETHYLENE GLYCOL POWDER 17 GM PACK PO SCH (08:41)
[2019-10-13] MEDS: prednisoLONE ACETATE 1% OPH SUSP 5 ML BOTTLE LEFT EYE SCH (08:41)
[2019-10-13] MEDS: CHLORHEXIDINE 0.12% ORAL RINSE 60 ML BOTTLE SWISH/SPIT SCH ×2 (08:41→21:44)
[2019-10-13] MEDS: DOCUSATE SODIUM 100 MG CAPSULE PO SCH (08:41)
[2019-10-13] MEDS: FERROUS SULFATE 325 MG TABLET PO SCH (08:41)
[2019-10-13] MEDS: PANTOPRAZOLE 40 MG TABLET PO SCH (08:41)
[2019-10-13] MEDS: METOPROLOL TARTRATE 50 MG TABLET PO SCH ×2 (08:41→21:43)
[2019-10-13] MEDS: SIMVASTATIN 10 MG TABLET PO SCH (21:43)
[2019-10-14] MEDS: INSULIN REGULAR 100 UNIT/ML SUBCUT SCH ×5 (01:13→17:51)
[2019-10-14 06:08] LABS: Basophils % 0.2 % (0.0-0.8); Eosinophils # 0.2 10*3/uL (0.0-0.87); Eosinophils % 2.7 % (0.00-10.9); Hematocrit 31.2 VOL% (35.7-47.0); Hemoglobin 9.7 GM/DL (12.0-16.0); Immature Granulocytes % 0.5 %; Immature Granulocytes Absolute 0.04 #; Lymphocytes # 1.8 10*3/uL (1.4-4.0); Lymphocytes % 20.5 % (21.3-54.2); Mean Corpuscular HGB Conc 31.1 GM/DL (32-36); Mean Corpuscular Volume 83.4 FL (87-102); Mean Platelet Volume 11.2 FL (9.6-12.0); Monocytes % 6.9 % (1.7-12.7); Neutrophils % 69.2 % (38.7-73.9); Platelet Count 195 T/CUMM (130-400); Red Blood Count 3.74 MC/CUMM (3.8-5.5); Red Cell Distribution Width 16.9 % (9.3-17.3); White Blood Count 8.8 T/CUMM (4-12)
[2019-10-14 06:17] LABS: Calcium 8.6 MG/DL (8.5-10.1)
[2019-10-14] MEDS: LOSARTAN/HCTZ 50-12.5 MG TABLET PO SCH (09:54)
[2019-10-14] MEDS: DOCUSATE SODIUM 100 MG CAPSULE PO SCH (09:54)
[2019-10-14] MEDS: POLYETHYLENE GLYCOL POWDER 17 GM PACK PO SCH ×2 (09:54→10:02)
[2019-10-14] MEDS: FERROUS SULFATE 325 MG TABLET PO SCH (09:54)
[2019-10-14] MEDS: GLIMEPIRIDE 2 MG TABLET PO SCH (09:55)
[2019-10-14] MEDS: CHLORHEXIDINE 0.12% ORAL RINSE 60 ML BOTTLE SWISH/SPIT SCH ×2 (09:55→22:41)
[2019-10-14] MEDS: METOPROLOL TARTRATE 50 MG TABLET PO SCH ×2 (09:55→22:36)
[2019-10-14] MEDS: SERTRALINE 25 MG TABLET PO SCH (09:55)
[2019-10-14] MEDS: prednisoLONE ACETATE 1% OPH SUSP 5 ML BOTTLE LEFT EYE SCH (09:55)
[2019-10-14] MEDS: PANTOPRAZOLE 40 MG TABLET PO SCH (09:55)
[2019-10-14] MEDS: ASPIRIN EC 81 MG TABLET PO SCH (09:55)
[2019-10-14] MEDS: prednisoLONE ACETATE 1% OPH SUSP 5 ML BOTTLE RIGHT EYE SCH (10:01)
[2019-10-14] MEDS: SIMVASTATIN 10 MG TABLET PO SCH (22:40)
[2019-10-15] MEDS: INSULIN REGULAR 100 UNIT/ML SUBCUT SCH ×5 (01:52→13:16)
[2019-10-15 06:24] LABS: Basophils % 0.2 % (0.0-0.8); Eosinophils # 0.2 10*3/uL (0.0-0.87); Eosinophils % 2.6 % (0.00-10.9); Hematocrit 30.4 VOL% (35.7-47.0); Hemoglobin 9.3 GM/DL (12.0-16.0); Immature Granulocytes % 0.5 %; Immature Granulocytes Absolute 0.04 #; Lymphocytes # 1.8 10*3/uL (1.4-4.0); Lymphocytes % 21.8 % (21.3-54.2); Mean Corpuscular HGB Conc 30.6 GM/DL (32-36); Mean Corpuscular Volume 82.8 FL (87-102); Mean Platelet Volume 10.6 FL (9.6-12.0); Monocytes % 6.8 % (1.7-12.7); Neutrophils % 68.1 % (38.7-73.9); Platelet Count 199 T/CUMM (130-400); Red Blood Count 3.67 MC/CUMM (3.8-5.5); Red Cell Distribution Width 16.7 % (9.3-17.3); White Blood Count 8.1 T/CUMM (4-12)
[2019-10-15] MEDS ORDERED: GLUCAGON 1 MG VIAL IM PRN (06:35)
[2019-10-15] MEDS ORDERED: DEXTROSE 50% 25 GM/50 ML VIAL IV PRN (06:35)
[2019-10-15] MEDS: GLIMEPIRIDE 2 MG TABLET PO SCH (09:04)
[2019-10-15] MEDS: LOSARTAN/HCTZ 50-12.5 MG TABLET PO SCH (09:04)
[2019-10-15] MEDS: PANTOPRAZOLE 40 MG TABLET PO SCH (09:05)
[2019-10-15] MEDS: SERTRALINE 25 MG TABLET PO SCH (09:05)
[2019-10-15] MEDS: ASPIRIN EC 81 MG TABLET PO SCH (09:05)
[2019-10-15] MEDS: METOPROLOL TARTRATE 50 MG TABLET PO SCH (09:05)
[2019-10-15] MEDS: POLYETHYLENE GLYCOL POWDER 17 GM PACK PO SCH (09:05)
[2019-10-15] MEDS: DOCUSATE SODIUM 100 MG CAPSULE PO SCH (09:05)
[2019-10-15] MEDS: FERROUS SULFATE 325 MG TABLET PO SCH (09:05)
[2019-10-15] MEDS: prednisoLONE ACETATE 1% OPH SUSP 5 ML BOTTLE LEFT EYE SCH (09:06)
[2019-10-15] MEDS: CHLORHEXIDINE 0.12% ORAL RINSE 60 ML BOTTLE SWISH/SPIT SCH (09:09)
[2019-10-15 13:10] VITALS: BP 114/70
== END 2019-10-15 13:10 | disposition home health service (06) | DRG 234 ==
LOC: N.EDINP 19:15 → N.ED 19:15 → N.TELEN 23:30 → N.CVR 10-06 11:17 → N.TELES 10-07 14:20
PROVIDERS: ADMIT Internal Medicine

== ENCOUNTER 2019-10-29 01:17 | Observation (INO) ==
[2019-10-29] MEDS ORDERED: ASPIRIN 325 MG TABLET PO STA (01:39)
[2019-10-29] MEDS ORDERED: ONDANSETRON 4 MG/2 ML VIAL IV STA (01:39)
[2019-10-29] MEDS ORDERED: MORPHINE 4 MG/1 ML VIAL IV STA (01:39)
[2019-10-29] MEDS ORDERED: NITROGLYCERIN 2% OINT 1 INCH/GM PACK TOP STA (01:39)
[2019-10-29 01:57] LABS: Basophils % 0.3 % (0.0-0.8); Eosinophils # 0.2 10*3/uL (0.0-0.87); Eosinophils % 2.8 % (0.00-10.9); Hematocrit 30.7 VOL% (35.7-47.0); Hemoglobin 9.4 GM/DL (12.0-16.0); Immature Granulocytes % 0.4 %; Immature Granulocytes Absolute 0.03 #; Lymphocytes # 1.8 10*3/uL (1.4-4.0); Lymphocytes % 23.3 % (21.3-54.2); Mean Corpuscular HGB Conc 30.6 GM/DL (32-36); Mean Corpuscular Volume 80.6 FL (87-102); Mean Platelet Volume 10.4 FL (9.6-12.0); Monocytes % 8.5 % (1.7-12.7); Neutrophils % 64.7 % (38.7-73.9); Platelet Count 274 T/CUMM (130-400); Red Blood Count 3.81 MC/CUMM (3.8-5.5); Red Cell Distribution Width 16.1 % (9.3-17.3); White Blood Count 7.9 T/CUMM (4-12)
[2019-10-29 02:06] LABS: INR 1.2; PT Patient Result 12.6 SECS (9.6-12.2)
[2019-10-29 02:22] LABS: Albumin 2.7 G/DL (3.4-5.0); Bilirubin,Total 0.6 MG/DL (0.2-1.0); Calcium 8.5 MG/DL (8.5-10.1); Osmolality,Calculated 280.5 MOS/KG (273-304); Total Protein 7.3 G/DL (6.4-8.3)
[2019-10-29] MEDS ORDERED: MAGNESIUM SULF RIDER 2 GM in PREMIX 1 EACH IV STA (02:31)
[2019-10-29] MEDS ORDERED: FUROSEMIDE 40 MG/4 ML VIAL IV STA (02:37)
[2019-10-29] MEDS ORDERED: MORPHINE 4 MG/1 ML VIAL IV PRN (03:52)
[2019-10-29] MEDS ORDERED: DEXTROSE 10% 250 ML BAG IV PRN (03:52)
[2019-10-29] MEDS ORDERED: ACETAMINOPHEN 325 MG TABLET PO PRN (03:52)
[2019-10-29] MEDS ORDERED: GLUCAGON 1 MG VIAL IM PRN (03:52)
[2019-10-29] MEDS ORDERED: ONDANSETRON 4 MG/2 ML VIAL IV PRN (03:52)
[2019-10-29] MEDS: SODIUM CHLORIDE 0.9% 1,000 ML IV SCH (04:54)
[2019-10-29 05:03] LABS: Basophils % 0.3 % (0.0-0.8); Eosinophils # 0.2 10*3/uL (0.0-0.87); Eosinophils % 2.5 % (0.00-10.9); Hematocrit 30.7 VOL% (35.7-47.0); Hemoglobin 9.3 GM/DL (12.0-16.0); Immature Granulocytes % 0.3 %; Immature Granulocytes Absolute 0.02 #; Lymphocytes # 1.6 10*3/uL (1.4-4.0); Lymphocytes % 25.5 % (21.3-54.2); Mean Corpuscular HGB Conc 30.3 GM/DL (32-36); Mean Corpuscular Volume 80.4 FL (87-102); Mean Platelet Volume 10.4 FL (9.6-12.0); Monocytes % 5.7 % (1.7-12.7); Neutrophils % 65.7 % (38.7-73.9); Platelet Count 257 T/CUMM (130-400); Red Blood Count 3.82 MC/CUMM (3.8-5.5); Red Cell Distribution Width 15.9 % (9.3-17.3); White Blood Count 6.3 T/CUMM (4-12)
[2019-10-29 05:25] LABS: Albumin 2.8 G/DL (3.4-5.0); Bilirubin,Total 0.8 MG/DL (0.2-1.0); Calcium 8.3 MG/DL (8.5-10.1); Osmolality,Calculated 289.8 MOS/KG (273-304); Risk Ratio 3.97; Total Protein 7.2 G/DL (6.4-8.3); VLDL CHOLESTEROL 29.2 MG/DL
[2019-10-29] MEDS: INSULIN REGULAR 100 UNIT/ML SUBCUT SCH ×3 (06:20→17:56)
[2019-10-29] MEDS: PANTOPRAZOLE 40 MG TABLET PO SCH (09:09)
[2019-10-29] MEDS: MAGNESIUM OXIDE 400 MG TABLET PO SCH ×3 (09:09→23:51)
[2019-10-29] MEDS: DOCUSATE SODIUM 100 MG CAPSULE PO SCH ×3 (09:09→23:51)
[2019-10-29] MEDS: METOPROLOL TARTRATE 50 MG TABLET PO SCH ×3 (10:36→23:51)
[2019-10-29] MEDS: ASPIRIN EC 81 MG TABLET PO SCH (10:36)
[2019-10-29] MEDS: LOSARTAN/HCTZ 50-12.5 MG TABLET PO SCH (10:36)
[2019-10-29 12:01] LABS: Calcium 8.6 MG/DL (8.5-10.1)
[2019-10-29] MEDS ORDERED: KETOROLAC 15 MG/1 ML VIAL IV ONE (12:21)
[2019-10-29] MEDS ORDERED: MAGNESIUM SULF RIDER 2 GM in PREMIX 1 EACH IV ONE (12:21)
[2019-10-29] MEDS: ALBUTEROL/IPRATROPIUM 3 ML NEB RESP TX SCH ×4 (13:13→20:31)
[2019-10-29] MEDS: cefTRIAXone 500 MG in SYRINGE 1 EACH IV SCH (13:16)
[2019-10-29] MEDS ORDERED: ALUM/MAG/SIMETH/LIDO VISC 1:1 30 ML BOTTLE PO ONE (16:27)
[2019-10-29] MEDS ORDERED: LACTATED RINGERS 1,000 ML IV SCH (18:30)
[2019-10-29] MEDS ORDERED: ALUMINUM/MAGNES/SIMETH MAX STR 30 ML UDCUP PO PRN (19:18)
[2019-10-29] MEDS ORDERED: ONDANSETRON 4 MG/2 ML VIAL ONE (19:34)
[2019-10-29] MEDS ORDERED: SUCCINYLCHOLINE 200 MG/10 ML VIAL ONE (19:34)
[2019-10-29] MEDS ORDERED: GLYCOPYRROLATE 0.4 MG/2 ML VIAL ONE (19:34)
[2019-10-29] MEDS ORDERED: propofoL 200 MG/20 ML VIAL IV ONE (19:34)
[2019-10-29] MEDS ORDERED: SEVOFLURANE 1 UNIT/15 MINUTE INH ONE (19:34)
[2019-10-29] MEDS ORDERED: LIDOCAINE 2% 5 ML VIAL ONE (19:34)
[2019-10-29] MEDS ORDERED: ALUMINUM/MAGNES/SIMETH MAX STR 30 ML UDCUP PO SCH (22:00)
[2019-10-29] MEDS: SIMVASTATIN 10 MG TABLET PO SCH ×2 (22:05→23:51)
[2019-10-30] MEDS: INSULIN REGULAR 100 UNIT/ML SUBCUT SCH ×3 (00:05→13:33)
[2019-10-30] MEDS: ALBUTEROL/IPRATROPIUM 3 ML NEB RESP TX SCH ×2 (00:49→07:45)
[2019-10-30] MEDS: SODIUM CHLORIDE 0.9% 1,000 ML IV SCH (04:17)
[2019-10-30] MEDS: MAGNESIUM OXIDE 400 MG TABLET PO SCH (09:29)
[2019-10-30] MEDS: DOCUSATE SODIUM 100 MG CAPSULE PO SCH (09:30)
[2019-10-30] MEDS: ASPIRIN EC 81 MG TABLET PO SCH (09:30)
[2019-10-30] MEDS: LOSARTAN/HCTZ 50-12.5 MG TABLET PO SCH (09:30)
[2019-10-30] MEDS: METOPROLOL TARTRATE 50 MG TABLET PO SCH (09:30)
[2019-10-30] MEDS: PANTOPRAZOLE 40 MG TABLET PO SCH (09:32)
[2019-10-30] MEDS ORDERED: SERTRALINE 25 MG TABLET PO SCH (10:30)
[2019-10-30 13:10] VITALS: BP 100/54
[2019-10-30] MEDS: cefTRIAXone 500 MG in SYRINGE 1 EACH IV SCH (15:09)
== END 2019-10-30 15:36 | disposition home or self-care (01) ==
LOC: N.EDINP 01:17 → N.ED 01:17 → INTOOBSV 02:39 → OBSVTOIN 02:39 → N.TELES 03:13
PROVIDERS: ADMIT Internal Medicine; ATTEND Internal Medicine

== ENCOUNTER 2019-11-03 22:51 | Inpatient (IN) ==
[2019-11-03] MEDS ORDERED: NITROGLYCERIN 2% OINT 1 INCH/GM PACK TOP STA (23:42)
[2019-11-03] MEDS ORDERED: ASPIRIN 325 MG TABLET PO STA (23:42)
[2019-11-03] MEDS ORDERED: ONDANSETRON 4 MG/2 ML VIAL IV STA (23:42)
[2019-11-03] MEDS ORDERED: PANTOPRAZOLE 40 MG VIAL IV STA (23:54)
[2019-11-04 00:22] LABS: INR 1.1; PT Patient Result 12.2 SECS (9.6-12.2)
[2019-11-04] MEDS ORDERED: FUROSEMIDE 40 MG/4 ML VIAL ONE (01:36)
[2019-11-04 03:25] LABS: Alanine Aminotransferase 31 U/L (13-56); Albumin 3.1 G/DL (3.4-5.0); Alkaline Phosphatase 107 U/L (45-117); Aspartate Amino Transferase 22 U/L (0-37); Blood Urea Nitrogen 17 MG/DL (7-18); Calcium 8.7 MG/DL (8.5-10.1); Estimated Glom Filtration Rate 62 ML/MIN; Glucose 96 MG/DL (74-106); Total Protein 7.4 G/DL (6.4-8.3)
[2019-11-04] MEDS ORDERED: ALUMINUM/MAGNES/SIMETH MAX STR 30 ML UDCUP PO PRN (11:13)
[2019-11-04] MEDS ORDERED: FUROSEMIDE 20 MG/2 ML VIAL IV ONE (11:16)
[2019-11-04] MEDS ORDERED: ALUM/MAG/SIMETH/LIDO VISC 1:1 30 ML BOTTLE PO ONE (11:19)
[2019-11-04 11:45] LABS: Basophils % 0.2 % (0.0-0.8); Eosinophils # 0.1 10*3/uL (0.0-0.87); Eosinophils % 2.1 % (0.00-10.9); Hemoglobin 8.2 GM/DL (12.0-16.0); Immature Granulocytes % 0.2 %; Immature Granulocytes Absolute 0.01 #; Lymphocytes # 1.6 10*3/uL (1.4-4.0); Lymphocytes % 38.7 % (21.3-54.2); Mean Corpuscular HGB Conc 29.3 GM/DL (32-36); Mean Corpuscular Volume 82.8 FL (87-102); Mean Platelet Volume 12.3 FL (9.6-12.0); Monocytes % 7.6 % (1.7-12.7); Neutrophils % 51.2 % (38.7-73.9); Red Blood Count 3.38 MC/CUMM (3.8-5.5); White Blood Count 4.2 T/CUMM (4-12)
[2019-11-04 11:47] LABS: Platelet Count 111 T/CUMM (130-400)
[2019-11-04 12:11] LABS: Platelet Estimate Adequate
[2019-11-04 12:12] LABS: Anisocytosis 2+; Poikilocytosis Slight
[2019-11-04 12:13] LABS: Troponin I 0.459 NG/ML (0.00-0.045)
[2019-11-04] MEDS: ALBUTEROL/IPRATROPIUM 3 ML NEB RESP TX SCH ×2 (12:53→19:05)
[2019-11-04] MEDS: GLIMEPIRIDE 2 MG TABLET PO SCH (13:02)
[2019-11-04] MEDS: MAGNESIUM OXIDE 400 MG TABLET PO SCH ×2 (13:02→22:23)
[2019-11-04] MEDS: DOCUSATE SODIUM 100 MG CAPSULE PO SCH ×2 (13:02→22:24)
[2019-11-04] MEDS: METOPROLOL TARTRATE 50 MG TABLET PO SCH ×2 (13:02→22:25)
[2019-11-04] MEDS: ASPIRIN EC 81 MG TABLET PO SCH (13:04)
[2019-11-04] MEDS ORDERED: GLUCAGON 1 MG VIAL IM PRN (14:20)
[2019-11-04] MEDS ORDERED: DEXTROSE 10% 25 GM/250 ML BAG IV PRN (14:20)
[2019-11-04] MEDS ORDERED: SODIUM CHLORIDE 0.9% 1,000 ML IV PRN (14:21)
[2019-11-04] MEDS: KETOROLAC 15 MG/1 ML VIAL IV SCH ×2 (14:27→22:32)
[2019-11-04] MEDS ORDERED: FUROSEMIDE 20 MG/2 ML VIAL IV PRN (16:33)
[2019-11-04] MEDS: INSULIN REGULAR 100 UNIT/ML SUBCUT SCH ×2 (16:37→22:26)
[2019-11-04] MEDS: PANTOPRAZOLE 40 MG TABLET PO SCH (22:25)
[2019-11-04] MEDS: SIMVASTATIN 10 MG TABLET PO SCH (22:25)
[2019-11-05] MEDS: ALBUTEROL/IPRATROPIUM 3 ML NEB RESP TX SCH ×4 (00:31→19:28)
[2019-11-05 05:30] LABS: Basophils % 0.2 % (0.0-0.8); Eosinophils # 0.1 10*3/uL (0.0-0.87); Eosinophils % 2.6 % (0.00-10.9); Hematocrit 37.4 VOL% (35.7-47.0); Immature Granulocytes % 0.4 %; Immature Granulocytes Absolute 0.02 #; Lymphocytes # 2.2 10*3/uL (1.4-4.0); Lymphocytes % 40.1 % (21.3-54.2); Mean Corpuscular HGB Conc 31.8 GM/DL (32-36); Mean Corpuscular Volume 79.7 FL (87-102); Mean Platelet Volume 11.2 FL (9.6-12.0); Monocytes % 9.6 % (1.7-12.7); Neutrophils % 47.1 % (38.7-73.9); Red Cell Distribution Width 15.9 % (9.3-17.3); White Blood Count 5.4 T/CUMM (4-12)
[2019-11-05 05:33] LABS: Hemoglobin 11.9 GM/DL (12.0-16.0); Platelet Count 204 T/CUMM (130-400); Red Blood Count 4.69 MC/CUMM (3.8-5.5)
[2019-11-05 05:34] LABS: Calcium 8.6 MG/DL (8.5-10.1); Osmolality,Calculated 284.1 MOS/KG (273-304)
[2019-11-05] MEDS: KETOROLAC 15 MG/1 ML VIAL IV SCH ×3 (07:32→21:57)
[2019-11-05] MEDS ORDERED: REGADENOSON 0.4 MG/5 ML SYRINGE IV ONE (09:33)
[2019-11-05] MEDS: DOCUSATE SODIUM 100 MG CAPSULE PO SCH ×2 (09:57→21:52)
[2019-11-05] MEDS: METOPROLOL TARTRATE 50 MG TABLET PO SCH ×2 (09:57→21:53)
[2019-11-05] MEDS: FUROSEMIDE 20 MG/2 ML VIAL IV SCH (09:58)
[2019-11-05] MEDS: MAGNESIUM OXIDE 400 MG TABLET PO SCH ×2 (09:58→21:54)
[2019-11-05] MEDS: ASPIRIN EC 81 MG TABLET PO SCH (09:58)
[2019-11-05] MEDS: PANTOPRAZOLE 40 MG TABLET PO SCH ×2 (09:58→21:52)
[2019-11-05] MEDS: GLIMEPIRIDE 2 MG TABLET PO SCH (09:58)
[2019-11-05] MEDS: INSULIN REGULAR 100 UNIT/ML SUBCUT SCH ×4 (09:59→21:35)
[2019-11-05] MEDS: SIMVASTATIN 10 MG TABLET PO SCH (21:52)
[2019-11-06] MEDS: ALBUTEROL/IPRATROPIUM 3 ML NEB RESP TX SCH ×4 (01:02→19:20)
[2019-11-06 03:33] LABS: Basophils % 0.2 % (0.0-0.8); Eosinophils # 0.2 10*3/uL (0.0-0.87); Eosinophils % 3.2 % (0.00-10.9); Hematocrit 38.1 VOL% (35.7-47.0); Immature Granulocytes % 0.2 %; Immature Granulocytes Absolute 0.01 #; Lymphocytes # 2.2 10*3/uL (1.4-4.0); Lymphocytes % 34.2 % (21.3-54.2); Mean Corpuscular HGB Conc 31.5 GM/DL (32-36); Mean Corpuscular Volume 80.5 FL (87-102); Mean Platelet Volume 10.7 FL (9.6-12.0); Monocytes % 8.5 % (1.7-12.7); Neutrophils % 53.7 % (38.7-73.9); Platelet Count 201 T/CUMM (130-400); Red Blood Count 4.73 MC/CUMM (3.8-5.5); Red Cell Distribution Width 15.9 % (9.3-17.3); White Blood Count 6.3 T/CUMM (4-12)
[2019-11-06 03:55] LABS: Calcium 8.6 MG/DL (8.5-10.1); Osmolality,Calculated 285.3 MOS/KG (273-304)
[2019-11-06] MEDS: KETOROLAC 15 MG/1 ML VIAL IV SCH ×3 (06:29→21:09)
[2019-11-06] MEDS ORDERED: diphenhydrAMINE CAP 25 MG CAPSULE PO ONE (07:45)
[2019-11-06] MEDS ORDERED: POTASSIUM CHLORIDE RIDER 10 MEQ in PREMIX 1 EACH IV PRN (07:45)
[2019-11-06] MEDS ORDERED: MAGNESIUM SULF RIDER 2 GM in PREMIX 1 EACH IV PRN (07:45)
[2019-11-06] MEDS ORDERED: DIAZEPAM 5 MG TABLET PO ONE (07:45)
[2019-11-06] MEDS: INSULIN REGULAR 100 UNIT/ML SUBCUT SCH ×4 (08:14→21:09)
[2019-11-06] MEDS: MAGNESIUM OXIDE 400 MG TABLET PO SCH ×2 (09:46→21:08)
[2019-11-06] MEDS: PANTOPRAZOLE 40 MG TABLET PO SCH ×2 (09:46→21:08)
[2019-11-06] MEDS: ASPIRIN EC 81 MG TABLET PO SCH (09:46)
[2019-11-06] MEDS: GLIMEPIRIDE 2 MG TABLET PO SCH (09:46)
[2019-11-06] MEDS: DOCUSATE SODIUM 100 MG CAPSULE PO SCH ×2 (09:46→21:08)
[2019-11-06] MEDS: SODIUM CHLORIDE 0.9% 1,000 ML IV SCH ×2 (10:09→16:45)
[2019-11-06] MEDS: METOPROLOL TARTRATE 50 MG TABLET PO SCH ×2 (11:54→21:09)
[2019-11-06] MEDS ORDERED: HYDROmorphone 2 MG/1 ML VIAL ONE (14:05)
[2019-11-06] MEDS ORDERED: MIDAZOLAM 2 MG/2 ML VIAL ONE (14:05)
[2019-11-06] MEDS ORDERED: ASPIRIN CHEW 81 MG TABLET PO ONE (14:21)
[2019-11-06] MEDS ORDERED: LIDOCAINE 1% 20 ML VIAL ONE (14:26)
[2019-11-06] MEDS ORDERED: HEPARIN/NACL 0.9% 2 UNITS/ML 1,000 ML IV ONE (14:27)
[2019-11-06] MEDS ORDERED: BIVALIRUDIN 250 MG VIAL IV ONE (14:49)
[2019-11-06] MEDS: BIVALIRUDIN 250 MG in SODIUM CHLORIDE 0.9% 50 ML IV SCH ×3 (14:56→21:50)
[2019-11-06] MEDS ORDERED: NITROPRUSSIDE 50 MG/2 ML VIAL ONE (15:09)
[2019-11-06] MEDS ORDERED: HEPARIN/NACL 0.9% 2 UNITS/ML 500 ML IV ONE (15:20)
[2019-11-06] MEDS ORDERED: VERAPAMIL 5 MG/2 ML VIAL ONE (15:24)
[2019-11-06] MEDS ORDERED: NITROGLYCERIN DRIP 50 MG/250 ML BOTTLE IV ONE (15:29)
[2019-11-06] MEDS ORDERED: SODIUM CHLORIDE 0.9% 1,000 ML IV SCH (15:30)
[2019-11-06] MEDS ORDERED: TICAGRELOR 90 MG TABLET ONE (15:54)
[2019-11-06] MEDS: FUROSEMIDE 20 MG/2 ML VIAL IV SCH (16:45)
[2019-11-06] MEDS: ROSUVASTATIN 20 MG TABLET PO SCH (21:08)
[2019-11-06] MEDS: TICAGRELOR 90 MG TABLET PO SCH (21:08)
[2019-11-07] MEDS: ALBUTEROL/IPRATROPIUM 3 ML NEB RESP TX SCH ×4 (01:00→20:23)
[2019-11-07] MEDS: SODIUM CHLORIDE 0.9% 1,000 ML IV SCH ×3 (03:55→22:08)
[2019-11-07 05:58] LABS: Calcium 8.2 MG/DL (8.5-10.1); Osmolality,Calculated 278.5 MOS/KG (273-304)
[2019-11-07] MEDS: KETOROLAC 15 MG/1 ML VIAL IV SCH ×3 (06:00→22:04)
[2019-11-07 06:59] LABS: Basophils % 0.2 % (0.0-0.8); Eosinophils # 0.3 10*3/uL (0.0-0.87); Eosinophils % 4.6 % (0.00-10.9); Hematocrit 41.3 VOL% (35.7-47.0); Hemoglobin 12.8 GM/DL (12.0-16.0); Immature Granulocytes % 0.4 %; Immature Granulocytes Absolute 0.02 #; Lymphocytes # 1.5 10*3/uL (1.4-4.0); Mean Corpuscular Volume 81.9 FL (87-102); Mean Platelet Volume 11.1 FL (9.6-12.0); Monocytes % 9.7 % (1.7-12.7); Neutrophils % 59.1 % (38.7-73.9); Platelet Count 195 T/CUMM (130-400); Red Blood Count 5.04 MC/CUMM (3.8-5.5); Red Cell Distribution Width 15.8 % (9.3-17.3); White Blood Count 5.7 T/CUMM (4-12)
[2019-11-07 07:25] LABS: Troponin I 0.409 NG/ML (0.00-0.045)
[2019-11-07] MEDS: FUROSEMIDE 20 MG/2 ML VIAL IV SCH (08:05)
[2019-11-07] MEDS: GLIMEPIRIDE 2 MG TABLET PO SCH (08:06)
[2019-11-07] MEDS: ASPIRIN EC 81 MG TABLET PO SCH (08:06)
[2019-11-07] MEDS: MAGNESIUM OXIDE 400 MG TABLET PO SCH ×2 (08:06→21:36)
[2019-11-07] MEDS: METOPROLOL TARTRATE 50 MG TABLET PO SCH ×2 (08:06→21:36)
[2019-11-07] MEDS: PANTOPRAZOLE 40 MG TABLET PO SCH ×2 (08:06→21:36)
[2019-11-07] MEDS: TICAGRELOR 90 MG TABLET PO SCH ×2 (08:06→21:36)
[2019-11-07] MEDS: DOCUSATE SODIUM 100 MG CAPSULE PO SCH ×2 (08:06→21:36)
[2019-11-07] MEDS: INSULIN REGULAR 100 UNIT/ML SUBCUT SCH ×4 (08:07→21:30)
[2019-11-07] MEDS: ROSUVASTATIN 20 MG TABLET PO SCH (21:35)
[2019-11-08] MEDS: ALBUTEROL/IPRATROPIUM 3 ML NEB RESP TX SCH ×4 (01:02→20:10)
[2019-11-08] MEDS: KETOROLAC 15 MG/1 ML VIAL IV SCH ×3 (05:59→21:02)
[2019-11-08 06:44] LABS: Basophils % 0.2 % (0.0-0.8); Eosinophils # 0.3 10*3/uL (0.0-0.87); Eosinophils % 4.4 % (0.00-10.9); Hematocrit 38.6 VOL% (35.7-47.0); Hemoglobin 12.1 GM/DL (12.0-16.0); Immature Granulocytes % 0.2 %; Immature Granulocytes Absolute 0.01 #; Lymphocytes # 1.5 10*3/uL (1.4-4.0); Lymphocytes % 25.5 % (21.3-54.2); Mean Corpuscular HGB Conc 31.3 GM/DL (32-36); Mean Corpuscular Volume 81.6 FL (87-102); Mean Platelet Volume 10.7 FL (9.6-12.0); Monocytes % 6.7 % (1.7-12.7); Platelet Count 176 T/CUMM (130-400); Red Blood Count 4.73 MC/CUMM (3.8-5.5); Red Cell Distribution Width 15.5 % (9.3-17.3)
[2019-11-08 07:21] LABS: Troponin I 2.32 NG/ML (0.00-0.045)
[2019-11-08 08:06] LABS: Calcium 7.6 MG/DL (8.5-10.1); Osmolality,Calculated 284.1 MOS/KG (273-304)
[2019-11-08] MEDS: MAGNESIUM OXIDE 400 MG TABLET PO SCH ×2 (09:13→21:01)
[2019-11-08] MEDS: GLIMEPIRIDE 2 MG TABLET PO SCH (09:14)
[2019-11-08] MEDS: ASPIRIN EC 81 MG TABLET PO SCH (09:14)
[2019-11-08] MEDS: TICAGRELOR 90 MG TABLET PO SCH ×2 (09:14→21:01)
[2019-11-08] MEDS: FUROSEMIDE 20 MG/2 ML VIAL IV SCH (09:14)
[2019-11-08] MEDS: METOPROLOL TARTRATE 50 MG TABLET PO SCH ×2 (09:14→21:01)
[2019-11-08] MEDS: DOCUSATE SODIUM 100 MG CAPSULE PO SCH ×2 (09:14→21:02)
[2019-11-08] MEDS: PANTOPRAZOLE 40 MG TABLET PO SCH ×2 (09:14→21:01)
[2019-11-08] MEDS: SODIUM CHLORIDE 0.9% 1,000 ML IV SCH ×2 (09:22→20:21)
[2019-11-08] MEDS: INSULIN REGULAR 100 UNIT/ML SUBCUT SCH ×4 (09:22→21:02)
[2019-11-08] MEDS: SPIRONOLACTONE 25 MG TABLET PO SCH (13:19)
[2019-11-08] MEDS: ROSUVASTATIN 20 MG TABLET PO SCH (21:01)
[2019-11-09] MEDS: ALBUTEROL/IPRATROPIUM 3 ML NEB RESP TX SCH ×5 (00:45→20:31)
[2019-11-09] MEDS: SODIUM CHLORIDE 0.9% 1,000 ML IV SCH ×2 (05:05→14:09)
[2019-11-09] MEDS: KETOROLAC 15 MG/1 ML VIAL IV SCH (05:31)
[2019-11-09 05:37] LABS: Basophils % 0.2 % (0.0-0.8); Eosinophils # 0.3 10*3/uL (0.0-0.87); Eosinophils % 5.3 % (0.00-10.9); Hematocrit 35.1 VOL% (35.7-47.0); Immature Granulocytes % 0.2 %; Immature Granulocytes Absolute 0.01 #; Lymphocytes # 1.7 10*3/uL (1.4-4.0); Lymphocytes % 29.2 % (21.3-54.2); Mean Corpuscular HGB Conc 31.3 GM/DL (32-36); Mean Corpuscular Volume 81.3 FL (87-102); Mean Platelet Volume 10.7 FL (9.6-12.0); Monocytes % 7.4 % (1.7-12.7); Neutrophils % 57.7 % (38.7-73.9); Platelet Count 150 T/CUMM (130-400); Red Blood Count 4.32 MC/CUMM (3.8-5.5); Red Cell Distribution Width 15.4 % (9.3-17.3); White Blood Count 5.8 T/CUMM (4-12)
[2019-11-09 06:11] LABS: Albumin 2.6 G/DL (3.4-5.0); Calcium 8.3 MG/DL (8.5-10.1); Osmolality,Calculated 281.3 MOS/KG (273-304); Total Protein 6.2 G/DL (6.4-8.3)
[2019-11-09] MEDS: INSULIN REGULAR 100 UNIT/ML SUBCUT SCH ×4 (08:12→22:12)
[2019-11-09] MEDS: DOCUSATE SODIUM 100 MG CAPSULE PO SCH ×2 (08:49→22:11)
[2019-11-09] MEDS: METOPROLOL TARTRATE 50 MG TABLET PO SCH ×2 (08:49→22:12)
[2019-11-09] MEDS: TICAGRELOR 90 MG TABLET PO SCH ×2 (08:49→22:12)
[2019-11-09] MEDS: GLIMEPIRIDE 2 MG TABLET PO SCH (08:49)
[2019-11-09] MEDS: ASPIRIN EC 81 MG TABLET PO SCH (08:49)
[2019-11-09] MEDS: MAGNESIUM OXIDE 400 MG TABLET PO SCH ×2 (08:49→22:11)
[2019-11-09] MEDS: SPIRONOLACTONE 25 MG TABLET PO SCH (08:49)
[2019-11-09] MEDS: PANTOPRAZOLE 40 MG TABLET PO SCH ×2 (08:49→22:11)
[2019-11-09] MEDS: FUROSEMIDE 20 MG/2 ML VIAL IV SCH (08:49)
[2019-11-09] MEDS: LOSARTAN 50 MG TABLET PO SCH (09:53)
[2019-11-09] MEDS ORDERED: POTASSIUM CHLORIDE 10 MEQ TABLET PO ONE (13:24)
[2019-11-09] MEDS: BACITRACIN OINT 0.9 GM PACK TOP SCH (22:11)
[2019-11-09] MEDS: ROSUVASTATIN 20 MG TABLET PO SCH (22:11)
[2019-11-10] MEDS: ALBUTEROL/IPRATROPIUM 3 ML NEB RESP TX SCH ×3 (01:35→13:40)
[2019-11-10 05:41] LABS: Basophils % 0.2 % (0.0-0.8); Eosinophils # 0.3 10*3/uL (0.0-0.87); Eosinophils % 4.7 % (0.00-10.9); Hematocrit 35.3 VOL% (35.7-47.0); Hemoglobin 10.9 GM/DL (12.0-16.0); Immature Granulocytes % 0.3 %; Immature Granulocytes Absolute 0.02 #; Lymphocytes # 1.9 10*3/uL (1.4-4.0); Lymphocytes % 30.3 % (21.3-54.2); Mean Corpuscular HGB Conc 30.9 GM/DL (32-36); Mean Corpuscular Volume 80.6 FL (87-102); Mean Platelet Volume 11.6 FL (9.6-12.0); Monocytes % 6.2 % (1.7-12.7); Neutrophils % 58.3 % (38.7-73.9); Platelet Count 158 T/CUMM (130-400); Red Blood Count 4.38 MC/CUMM (3.8-5.5); Red Cell Distribution Width 15.5 % (9.3-17.3); White Blood Count 6.3 T/CUMM (4-12)
[2019-11-10 05:56] LABS: Calcium 8.6 MG/DL (8.5-10.1)
[2019-11-10] MEDS: INSULIN REGULAR 100 UNIT/ML SUBCUT SCH ×3 (08:20→16:39)
[2019-11-10] MEDS: BACITRACIN OINT 0.9 GM PACK TOP SCH (08:51)
[2019-11-10] MEDS: MAGNESIUM OXIDE 400 MG TABLET PO SCH (08:51)
[2019-11-10] MEDS: ASPIRIN EC 81 MG TABLET PO SCH (08:51)
[2019-11-10] MEDS: SPIRONOLACTONE 25 MG TABLET PO SCH (08:52)
[2019-11-10] MEDS: PANTOPRAZOLE 40 MG TABLET PO SCH (08:52)
[2019-11-10] MEDS: METOPROLOL TARTRATE 50 MG TABLET PO SCH (08:52)
[2019-11-10] MEDS: TICAGRELOR 90 MG TABLET PO SCH (08:52)
[2019-11-10] MEDS: DOCUSATE SODIUM 100 MG CAPSULE PO SCH (08:52)
[2019-11-10] MEDS: LOSARTAN 50 MG TABLET PO SCH (08:52)
[2019-11-10] MEDS: GLIMEPIRIDE 2 MG TABLET PO SCH (08:52)
[2019-11-10] MEDS: FUROSEMIDE 20 MG/2 ML VIAL IV SCH (08:53)
[2019-11-10] MEDS ORDERED: POTASSIUM CHLORIDE 10 MEQ TABLET PO SCH (09:00)
[2019-11-10 12:44] VITALS: BP 136/76
== END 2019-11-10 19:15 | disposition home health service (06) | DRG 247 ==
LOC: N.ED 22:51 → N.EDINP 11-04 02:00 → INTOOBSV 11-04 02:00 → N.2W 11-04 08:09 → N.TELEN 11-06 15:34 → N.CC 11-06 16:20 → N.TELES 11-08 06:33
PROVIDERS: ADMIT Internal Medicine; ATTEND Internal Medicine
PROC: CLDESPG (ICD-10-PCS; 2019-11-06 12:15)

== ENCOUNTER 2019-12-05 13:45 | Observation (INO) ==
[2019-12-05] MEDS ORDERED: ASPIRIN 325 MG TABLET PO STA (13:58)
[2019-12-05 14:18] LABS: Basophils % 0.2 % (0.0-0.8); Eosinophils # 0.1 10*3/uL (0.0-0.87); Eosinophils % 1.7 % (0.00-10.9); Hematocrit 38.5 VOL% (35.7-47.0); Hemoglobin 11.9 GM/DL (12.0-16.0); Immature Granulocytes % 0.3 %; Immature Granulocytes Absolute 0.02 #; Lymphocytes # 2.5 10*3/uL (1.4-4.0); Lymphocytes % 38.9 % (21.3-54.2); Mean Corpuscular HGB Conc 30.9 GM/DL (32-36); Mean Corpuscular Volume 78.4 FL (87-102); Mean Platelet Volume 9.7 FL (9.6-12.0); Monocytes % 5.9 % (1.7-12.7); Platelet Count 156 T/CUMM (130-400); Red Blood Count 4.91 MC/CUMM (3.8-5.5); Red Cell Distribution Width 14.9 % (9.3-17.3); White Blood Count 6.5 T/CUMM (4-12)
[2019-12-05 14:28] LABS: INR 1.1; PT Patient Result 11.5 SECS (9.6-12.2); Partial Thromboplastin Time 24.5 SECS (20.8-36.0)
[2019-12-05 14:34] LABS: Albumin 3.5 G/DL (3.4-5.0); Bilirubin,Total 0.6 MG/DL (0.2-1.0); Osmolality,Calculated 281.1 MOS/KG (273-304); Total Protein 7.9 G/DL (6.4-8.3)
[2019-12-05] MEDS ORDERED: ENOXAPARIN 100 MG/ML SYRINGE SUBCUT STA (14:53)
[2019-12-05] MEDS ORDERED: NITROGLYCERIN 2% OINT 1 INCH/GM PACK TOP STA (14:53)
[2019-12-05] MEDS ORDERED: NALOXONE 0.4 MG/ML VIAL IV PRN (15:07)
[2019-12-05] MEDS ORDERED: BISACODYL 5 MG TABLET PO PRN (15:07)
[2019-12-05] MEDS ORDERED: MORPHINE 4 MG/1 ML VIAL IV PRN (15:07)
[2019-12-05] MEDS ORDERED: ACETAMINOPHEN 325 MG TABLET PO PRN (15:07)
[2019-12-05] MEDS ORDERED: PROMETHAZINE 25 MG/1 ML VIAL IM PRN (15:07)
[2019-12-05] MEDS ORDERED: SODIUM CHLORIDE 0.9% 1,000 ML IV SCH (15:30)
[2019-12-05] MEDS ORDERED: NITROGLYCERIN SL 0.4 MG TABLET SL PRN (17:27)
[2019-12-05] MEDS ORDERED: GLUCAGON 1 MG VIAL IM PRN (17:28)
[2019-12-05] MEDS ORDERED: DEXTROSE 10% 250 ML BAG IV PRN (17:28)
[2019-12-05] MEDS ORDERED: DEXTROSE 50% 25 GM/50 ML VIAL IV PRN (17:29)
[2019-12-05] MEDS: ALBUTEROL/IPRATROPIUM 3 ML NEB RESP TX SCH (20:04)
[2019-12-05] MEDS: MAGNESIUM OXIDE 400 MG TABLET PO SCH (21:08)
[2019-12-05] MEDS: DOCUSATE SODIUM 100 MG CAPSULE PO SCH (21:08)
[2019-12-05] MEDS: INSULIN LISPRO 100 UNIT/ML SUBCUT SCH (21:09)
[2019-12-05] MEDS: TICAGRELOR 90 MG TABLET PO SCH (21:09)
[2019-12-05] MEDS: ROSUVASTATIN 20 MG TABLET PO SCH (21:09)
[2019-12-05] MEDS: METOPROLOL SUCCINATE XL 50 MG TABLET PO SCH (21:14)
[2019-12-06] MEDS: SODIUM CHLORIDE 0.9% 1,000 ML IV SCH ×2 (00:54→08:28)
[2019-12-06 05:49] LABS: Basophils % 0.2 % (0.0-0.8); Eosinophils # 0.2 10*3/uL (0.0-0.87); Eosinophils % 2.6 % (0.00-10.9); Hematocrit 38.9 VOL% (35.7-47.0); Hemoglobin 12.1 GM/DL (12.0-16.0); Immature Granulocytes % 0.2 %; Immature Granulocytes Absolute 0.01 #; Lymphocytes # 2.2 10*3/uL (1.4-4.0); Lymphocytes % 38.2 % (21.3-54.2); Mean Corpuscular HGB Conc 31.1 GM/DL (32-36); Mean Corpuscular Volume 77.8 FL (87-102); Mean Platelet Volume 11.1 FL (9.6-12.0); Neutrophils % 51.8 % (38.7-73.9); Platelet Count 174 T/CUMM (130-400); Red Cell Distribution Width 14.9 % (9.3-17.3); White Blood Count 5.9 T/CUMM (4-12)
[2019-12-06 06:07] LABS: Albumin 3.2 G/DL (3.4-5.0); Bilirubin,Total 0.6 MG/DL (0.2-1.0); Calcium 8.6 MG/DL (8.5-10.1); Osmolality,Calculated 289.4 MOS/KG (273-304); Total Protein 7.3 G/DL (6.4-8.3)
[2019-12-06] MEDS: ALBUTEROL/IPRATROPIUM 3 ML NEB RESP TX SCH ×3 (07:51→19:20)
[2019-12-06] MEDS: INSULIN LISPRO 100 UNIT/ML SUBCUT SCH ×4 (08:27→20:43)
[2019-12-06] MEDS: MAGNESIUM OXIDE 400 MG TABLET PO SCH ×2 (08:29→20:38)
[2019-12-06] MEDS: POTASSIUM CHLORIDE 10 MEQ TABLET PO SCH (08:29)
[2019-12-06] MEDS: LOSARTAN 50 MG TABLET PO SCH (08:29)
[2019-12-06] MEDS: prednisoLONE ACETATE 1% OPH SUSP 5 ML BOTTLE BOTH EYES SCH (08:30)
[2019-12-06] MEDS: ASPIRIN CHEW 81 MG TABLET PO SCH (08:30)
[2019-12-06] MEDS: PANTOPRAZOLE 40 MG TABLET PO SCH (08:30)
[2019-12-06] MEDS: FUROSEMIDE 40 MG TABLET PO SCH (08:30)
[2019-12-06] MEDS: DOCUSATE SODIUM 100 MG CAPSULE PO SCH ×2 (08:30→20:38)
[2019-12-06] MEDS: METOPROLOL SUCCINATE XL 50 MG TABLET PO SCH ×2 (08:30→20:38)
[2019-12-06] MEDS: TICAGRELOR 90 MG TABLET PO SCH ×2 (08:35→20:38)
[2019-12-06] MEDS ORDERED: RANOLAZINE 500 MG TABLET PO SCH (11:30)
[2019-12-06] MEDS: COLCHICINE 0.6 MG CAPSULE PO SCH (13:40)
[2019-12-06] MEDS: ROSUVASTATIN 20 MG TABLET PO SCH (20:38)
[2019-12-07] MEDS: ALBUTEROL/IPRATROPIUM 3 ML NEB RESP TX SCH ×3 (07:55→19:49)
[2019-12-07] MEDS: INSULIN LISPRO 100 UNIT/ML SUBCUT SCH ×4 (08:33→21:52)
[2019-12-07] MEDS: FUROSEMIDE 40 MG TABLET PO SCH (08:34)
[2019-12-07] MEDS: LOSARTAN 50 MG TABLET PO SCH (08:34)
[2019-12-07] MEDS: ASPIRIN CHEW 81 MG TABLET PO SCH (08:34)
[2019-12-07] MEDS: METOPROLOL SUCCINATE XL 50 MG TABLET PO SCH ×2 (08:34→21:52)
[2019-12-07] MEDS: MAGNESIUM OXIDE 400 MG TABLET PO SCH ×2 (08:34→21:52)
[2019-12-07] MEDS: prednisoLONE ACETATE 1% OPH SUSP 5 ML BOTTLE BOTH EYES SCH (08:34)
[2019-12-07] MEDS: DOCUSATE SODIUM 100 MG CAPSULE PO SCH ×2 (08:35→21:52)
[2019-12-07] MEDS: COLCHICINE 0.6 MG CAPSULE PO SCH (08:35)
[2019-12-07] MEDS: PANTOPRAZOLE 40 MG TABLET PO SCH (08:35)
[2019-12-07] MEDS: TICAGRELOR 90 MG TABLET PO SCH ×2 (08:35→21:52)
[2019-12-07] MEDS: POTASSIUM CHLORIDE 10 MEQ TABLET PO SCH (08:35)
[2019-12-07] MEDS: ONDANSETRON 4 MG/2 ML VIAL IV PRN (14:11)
[2019-12-07] MEDS: ROSUVASTATIN 20 MG TABLET PO SCH (21:52)
[2019-12-08] MEDS ORDERED: LOSARTAN 50 MG TABLET PO SCH (01:00)
[2019-12-08 05:07] LABS: Basophils % 0.1 % (0.0-0.8); Eosinophils # 0.3 10*3/uL (0.0-0.87); Eosinophils % 3.3 % (0.00-10.9); Hematocrit 38.5 VOL% (35.7-47.0); Immature Granulocytes % 0.3 %; Immature Granulocytes Absolute 0.02 #; Lymphocytes # 2.7 10*3/uL (1.4-4.0); Lymphocytes % 35.8 % (21.3-54.2); Mean Corpuscular HGB Conc 31.2 GM/DL (32-36); Mean Corpuscular Volume 77.8 FL (87-102); Mean Platelet Volume 10.4 FL (9.6-12.0); Monocytes % 6.3 % (1.7-12.7); Neutrophils % 54.2 % (38.7-73.9); Platelet Count 167 T/CUMM (130-400); Red Blood Count 4.95 MC/CUMM (3.8-5.5); White Blood Count 7.6 T/CUMM (4-12)
[2019-12-08 05:48] LABS: Albumin 3.2 G/DL (3.4-5.0); Bilirubin,Total 1.1 MG/DL (0.2-1.0); Calcium 9.2 MG/DL (8.5-10.1); Osmolality,Calculated 288.4 MOS/KG (273-304); Total Protein 7.4 G/DL (6.4-8.3)
[2019-12-08] MEDS: ALBUTEROL/IPRATROPIUM 3 ML NEB RESP TX SCH ×3 (08:18→19:32)
[2019-12-08] MEDS: INSULIN LISPRO 100 UNIT/ML SUBCUT SCH ×4 (08:36→22:59)
[2019-12-08] MEDS: PANTOPRAZOLE 40 MG TABLET PO SCH (09:07)
[2019-12-08] MEDS: MAGNESIUM OXIDE 400 MG TABLET PO SCH ×2 (09:07→21:07)
[2019-12-08] MEDS: METOPROLOL SUCCINATE XL 50 MG TABLET PO SCH ×2 (09:07→21:07)
[2019-12-08] MEDS: COLCHICINE 0.6 MG CAPSULE PO SCH (09:07)
[2019-12-08] MEDS: ASPIRIN CHEW 81 MG TABLET PO SCH (09:07)
[2019-12-08] MEDS: FUROSEMIDE 40 MG TABLET PO SCH (09:08)
[2019-12-08] MEDS: DOCUSATE SODIUM 100 MG CAPSULE PO SCH ×2 (09:08→21:11)
[2019-12-08] MEDS: LOSARTAN 50 MG TABLET PO SCH (09:08)
[2019-12-08] MEDS: POTASSIUM CHLORIDE 10 MEQ TABLET PO SCH (09:08)
[2019-12-08] MEDS: prednisoLONE ACETATE 1% OPH SUSP 5 ML BOTTLE BOTH EYES SCH (09:09)
[2019-12-08] MEDS: ONDANSETRON 4 MG/2 ML VIAL IV PRN (15:35)
[2019-12-08] MEDS ORDERED: MAGNESIUM HYDROXIDE SUSP 30 ML UDCUP PO PRN (18:38)
[2019-12-08] MEDS ORDERED: MAGNESIUM HYDROXIDE SUSP 30 ML UDCUP PO ONE (18:39)
[2019-12-08] MEDS: ROSUVASTATIN 20 MG TABLET PO SCH (21:11)
[2019-12-08] MEDS: SODIUM CHLORIDE 0.45% 1,000 ML IV SCH (23:38)
[2019-12-09 04:44] LABS: Basophils % 0.2 % (0.0-0.8); Eosinophils # 0.2 10*3/uL (0.0-0.87); Eosinophils % 2.8 % (0.00-10.9); Hematocrit 37.5 VOL% (35.7-47.0); Hemoglobin 11.6 GM/DL (12.0-16.0); Immature Granulocytes % 0.2 %; Immature Granulocytes Absolute 0.01 #; Lymphocytes # 2.7 10*3/uL (1.4-4.0); Mean Corpuscular HGB Conc 30.9 GM/DL (32-36); Mean Corpuscular Volume 78.5 FL (87-102); Mean Platelet Volume 10.5 FL (9.6-12.0); Neutrophils % 48.8 % (38.7-73.9); Platelet Count 159 T/CUMM (130-400); Red Blood Count 4.78 MC/CUMM (3.8-5.5); Red Cell Distribution Width 14.9 % (9.3-17.3); White Blood Count 6.3 T/CUMM (4-12)
[2019-12-09 05:11] LABS: Albumin 3.3 G/DL (3.4-5.0); Bilirubin,Total 0.8 MG/DL (0.2-1.0); Calcium 9.4 MG/DL (8.5-10.1); Osmolality,Calculated 289.3 MOS/KG (273-304); Total Protein 7.5 G/DL (6.4-8.3)
[2019-12-09] MEDS: ALBUTEROL/IPRATROPIUM 3 ML NEB RESP TX SCH ×3 (07:45→19:38)
[2019-12-09] MEDS: ASPIRIN CHEW 81 MG TABLET PO SCH (08:33)
[2019-12-09] MEDS: INSULIN LISPRO 100 UNIT/ML SUBCUT SCH ×4 (08:33→22:36)
[2019-12-09] MEDS: METOPROLOL SUCCINATE XL 50 MG TABLET PO SCH ×2 (08:34→22:36)
[2019-12-09] MEDS: COLCHICINE 0.6 MG CAPSULE PO SCH (08:34)
[2019-12-09] MEDS: POTASSIUM CHLORIDE 10 MEQ TABLET PO SCH (08:34)
[2019-12-09] MEDS: MAGNESIUM OXIDE 400 MG TABLET PO SCH ×2 (08:34→22:36)
[2019-12-09] MEDS: LOSARTAN 50 MG TABLET PO SCH (08:34)
[2019-12-09] MEDS: PANTOPRAZOLE 40 MG TABLET PO SCH (08:34)
[2019-12-09] MEDS: DOCUSATE SODIUM 100 MG CAPSULE PO SCH ×2 (08:34→22:36)
[2019-12-09] MEDS: FUROSEMIDE 40 MG TABLET PO SCH (08:34)
[2019-12-09] MEDS: prednisoLONE ACETATE 1% OPH SUSP 5 ML BOTTLE BOTH EYES SCH (08:38)
[2019-12-09] MEDS: SODIUM CHLORIDE 0.45% 1,000 ML IV SCH ×2 (10:16→22:48)
[2019-12-09] MEDS ORDERED: DEXAMETHASONE 10 MG/1 ML VIAL ONE (11:21)
[2019-12-09] MEDS ORDERED: propofoL 200 MG/20 ML VIAL IV ONE (11:56)
[2019-12-09] MEDS ORDERED: LIDOCAINE 2% 5 ML VIAL ONE (11:56)
[2019-12-09] MEDS ORDERED: ETOMIDATE 40 MG/20 ML VIAL IV ONE (11:56)
[2019-12-09] MEDS: ROSUVASTATIN 20 MG TABLET PO SCH (22:36)
[2019-12-10 05:15] LABS: Osmolality,Calculated 286.5 MOS/KG (273-304)
[2019-12-10] MEDS: ALBUTEROL/IPRATROPIUM 3 ML NEB RESP TX SCH ×2 (07:59→13:44)
[2019-12-10] MEDS: INSULIN LISPRO 100 UNIT/ML SUBCUT SCH ×2 (08:12→13:02)
[2019-12-10] MEDS: PANTOPRAZOLE 40 MG TABLET PO SCH (09:12)
[2019-12-10] MEDS: LOSARTAN 50 MG TABLET PO SCH (09:12)
[2019-12-10] MEDS: TICAGRELOR 90 MG TABLET PO SCH (09:12)
[2019-12-10] MEDS: POTASSIUM CHLORIDE 10 MEQ TABLET PO SCH (09:12)
[2019-12-10] MEDS: METOPROLOL SUCCINATE XL 50 MG TABLET PO SCH (09:12)
[2019-12-10] MEDS: MAGNESIUM OXIDE 400 MG TABLET PO SCH (09:12)
[2019-12-10] MEDS: FUROSEMIDE 40 MG TABLET PO SCH (09:12)
[2019-12-10] MEDS: DOCUSATE SODIUM 100 MG CAPSULE PO SCH (09:12)
[2019-12-10] MEDS: COLCHICINE 0.6 MG CAPSULE PO SCH (09:12)
[2019-12-10] MEDS: ASPIRIN CHEW 81 MG TABLET PO SCH (09:12)
[2019-12-10] MEDS: prednisoLONE ACETATE 1% OPH SUSP 5 ML BOTTLE BOTH EYES SCH (09:13)
[2019-12-10 12:32] VITALS: BP 133/74
== END 2019-12-10 15:55 | disposition home or self-care (01) ==
LOC: N.ED 13:45 → N.EDINP 15:07 → INTOOBSV 15:07 → N.EDINP 15:45 → N.TELEN 15:58
PROVIDERS: ADMIT Internal Medicine; ATTEND Internal Medicine

== ENCOUNTER 2019-12-20 17:44 | Observation (INO) ==
[2019-12-20 23:29] LABS: Basophils % 0.1 % (0.0-0.8); Eosinophils % 0.4 % (0.00-10.9); Hematocrit 42.8 VOL% (35.7-47.0); Hemoglobin 13.3 GM/DL (12.0-16.0); Immature Granulocytes % 0.2 %; Immature Granulocytes Absolute 0.02 #; Lymphocytes # 2.4 10*3/uL (1.4-4.0); Lymphocytes % 27.9 % (21.3-54.2); Mean Corpuscular HGB Conc 31.1 GM/DL (32-36); Mean Corpuscular Volume 78.5 FL (87-102); Mean Platelet Volume 10.6 FL (9.6-12.0); Monocytes % 5.8 % (1.7-12.7); Neutrophils % 65.6 % (38.7-73.9); Platelet Count 192 T/CUMM (130-400); Red Blood Count 5.45 MC/CUMM (3.8-5.5); Red Cell Distribution Width 15.3 % (9.3-17.3); White Blood Count 8.5 T/CUMM (4-12)
[2019-12-20 23:49] LABS: Albumin 3.8 G/DL (3.4-5.0); Calcium 9.6 MG/DL (8.5-10.1); Total Protein 8.5 G/DL (6.4-8.3)
[2019-12-21 00:30] LABS: Apearance,Urine CLEAR (Clear); Bilirubin,Urine Negative (Negative); Blood, Urine Negative (Negative); Glucose,Urine (UA) Negative (Negative); Ketones,Urine Negative (Negative); Mucus,Urine Occasional /LPF (Occasional); Nitrite,Urine Negative (Negative); Protein,Urine Negative; Squamous Epithelial Cell,Urine Occasional /HPF (0-10); Urine Color Yellow (Yellow); Urine Specific Gravity 1.009 (1.001-1.035); Urine Urobilinogen < 2.0 EU/DL (0.2-1.0)
[2019-12-21] MEDS ORDERED: ONDANSETRON 4 MG/2 ML VIAL IV PRN (02:05)
[2019-12-21] MEDS: SODIUM CHLORIDE 0.9% 1,000 ML IV SCH ×3 (03:33→22:13)
[2019-12-21 05:30] LABS: Basophils % 0.2 % (0.0-0.8); Eosinophils # 0.1 10*3/uL (0.0-0.87); Eosinophils % 0.9 % (0.00-10.9); Hematocrit 37.6 VOL% (35.7-47.0); Hemoglobin 11.9 GM/DL (12.0-16.0); Immature Granulocytes % 0.2 %; Immature Granulocytes Absolute 0.01 #; Lymphocytes # 1.9 10*3/uL (1.4-4.0); Lymphocytes % 35.1 % (21.3-54.2); Mean Corpuscular HGB Conc 31.6 GM/DL (32-36); Mean Platelet Volume 10.8 FL (9.6-12.0); Monocytes % 7.7 % (1.7-12.7); Neutrophils % 55.9 % (38.7-73.9); Platelet Count 182 T/CUMM (130-400); Red Blood Count 4.95 MC/CUMM (3.8-5.5); Red Cell Distribution Width 14.9 % (9.3-17.3); White Blood Count 5.3 T/CUMM (4-12)
[2019-12-21 05:39] LABS: Hepatitis B Core IgM Quant 0.07 Index; Hepatitis B Surface Ag Quant < 0.10 Index; Hepatitis B Surface Ag Result Negative (Negative)
[2019-12-21 05:57] LABS: Albumin 3.3 G/DL (3.4-5.0); Bilirubin,Total 1.4 MG/DL (0.2-1.0); Calcium 9.4 MG/DL (8.5-10.1); Osmolality,Calculated 287.4 MOS/KG (273-304); Total Protein 7.4 G/DL (6.4-8.3)
[2019-12-21] MEDS: PANTOPRAZOLE 40 MG TABLET PO SCH (08:47)
[2019-12-21 09:21] LABS: Hepatitis C Virus Ab Quant < 0.02 Index; Hepatitis C Virus Ab Result Negative (Negative)
[2019-12-21] MEDS: TICAGRELOR 90 MG TABLET PO SCH (21:21)
[2019-12-21] MEDS ORDERED: MAGNESIUM HYDROXIDE SUSP 30 ML UDCUP PO PRN (22:49)
[2019-12-21] MEDS ORDERED: BISACODYL 5 MG TABLET PO PRN (22:49)
[2019-12-21] MEDS ORDERED: POTASSIUM CHLORIDE 20 MEQ TABLET PO ONE (22:52)
[2019-12-22 06:44] LABS: Basophils % 0.2 % (0.0-0.8); Eosinophils # 0.1 10*3/uL (0.0-0.87); Eosinophils % 1.7 % (0.00-10.9); Hematocrit 37.6 VOL% (35.7-47.0); Hemoglobin 11.3 GM/DL (12.0-16.0); Immature Granulocytes % 0.3 %; Immature Granulocytes Absolute 0.02 #; Lymphocytes # 2.4 10*3/uL (1.4-4.0); Lymphocytes % 40.1 % (21.3-54.2); Mean Corpuscular HGB Conc 30.1 GM/DL (32-36); Mean Corpuscular Volume 79.2 FL (87-102); Mean Platelet Volume 10.9 FL (9.6-12.0); Monocytes % 6.5 % (1.7-12.7); Neutrophils % 51.2 % (38.7-73.9); Platelet Count 180 T/CUMM (130-400); Red Blood Count 4.75 MC/CUMM (3.8-5.5); Red Cell Distribution Width 14.9 % (9.3-17.3)
[2019-12-22 07:07] LABS: Bilirubin,Total 1.2 MG/DL (0.2-1.0); Calcium 8.7 MG/DL (8.5-10.1); Osmolality,Calculated 288.1 MOS/KG (273-304); Total Protein 6.7 G/DL (6.4-8.3)
[2019-12-22] MEDS: ALBUTEROL/IPRATROPIUM 3 ML NEB RESP TX SCH ×2 (07:09→13:53)
[2019-12-22] MEDS: TICAGRELOR 90 MG TABLET PO SCH (08:31)
[2019-12-22] MEDS: PANTOPRAZOLE 40 MG TABLET PO SCH (08:32)
[2019-12-22] MEDS ORDERED: prednisoLONE ACETATE 1% OPH SUSP 5 ML BOTTLE BOTH EYES SCH (09:00)
[2019-12-22] MEDS ORDERED: DOCUSATE SODIUM 100 MG CAPSULE PO SCH (09:00)
[2019-12-22] MEDS ORDERED: MAGNESIUM OXIDE 400 MG TABLET PO SCH (09:00)
[2019-12-22] MEDS ORDERED: METOPROLOL SUCCINATE XL 25 MG TABLET PO SCH (09:00)
[2019-12-22] MEDS ORDERED: sitaGLIPtin 25 MG TABLET PO SCH (09:00)
[2019-12-22] MEDS ORDERED: POTASSIUM CHLORIDE 20 MEQ TABLET PO SCH (09:00)
[2019-12-22 11:30] VITALS: BP 120/71
[2019-12-22] MEDS ORDERED: ASPIRIN EC 81 MG TABLET PO SCH (12:00)
== END 2019-12-22 18:22 | disposition home or self-care (01) ==
LOC: N.EDINP 17:44 → N.ED 17:44 → N.5E 12-21 02:45
PROVIDERS: ADMIT Internal Medicine; ATTEND Internal Medicine